=== PATIENT | male | born 1935 | race Caucasian/White ===

== ENCOUNTER 2019-01-12 15:43 | Emergency (ER) | payer MEDICARE, OTHER, SELFPAY ==
--- NOTE | 2019-01-12 15:52 | W.ED.GENAD ---
Discharge Plan Disposition Patient Disposition: HOME Condition: Improving Discharge Details Chief Complaint: Laceration Clinical Impression: Laceration of thumb Primary Care Provider: Catrina Steve ED Provider: Sara Baeza Home Meds and New Rx's Prescriptions: Continued multivitamin [Daily Vitamin] 1 EACH tablet 1 tab PO DAILY RF: 0 glucosam-chond ro-nekopv-ys ac 1 EACH capsule 2 cap PO DAILY RF: 0 Prilosec OTC 20 MG tablet,delayed release (DR/EC) 20 mg PO DAILY RF: 0 ibuprofen 200 MG tablet 400 mg PO PRN PRNRF: 0 acetaminophen [Acetaminophen Extra Strength] 500 MG tablet 500 mg PO Q6H PRN PRNQty: 60 RF: 3 Discharge Instructions Instructions: Laceration (ED) Additional Instructions: Keep wound clean, dry, covered. Please keep current dressing on for the next 24 hours. After that, you may apply Band-Aid over wound. You may wash with running water and soap but please do not soak or submerge as this may increase risk of infection. Please monitor for signs of infection with redness, warmth, drainage, increased pain, fever/chills. If these arise, please seek care urgently once again. Otherwise, please return in 10 days for suture removal. Referrals: Catrina Steve MD, [place] [Primary Care Provider] - Discharge Data Discharge Date/Time-TO BE ENTERED AT DEPARTURE: 01/12/19 17:10 Medical Decision Making Patient is a 83 year old RHD male presenting today with c/c of laceration to palmar aspect of left thumb. 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 Denies altered sensation, no other injury. Ligamentous and sensation intact on exam. Patient has a 2cm irregular laceration into subcutaneous tissue. Discussed closure techniques, discussed risks/benefits of suture closure with expected procedureal steps, he voices understanding and wishes to proceed. Unknwon tetanus. Please see procedure note. Wound was explored to base in a bloodless field no foreign body or debris noted. Wound was copiously irrigated with chlorhexidine and saline. Patient I discussed wound care in depth. We discussed when she should seek care urgently once again, in particular discussed signs of infection. I advised to keep current dressing on until tomorrow. At that time will keep covered with bandage. He will return in 10 days for suture removal. We discussed activities to avoid. All other questions or concerns were addressed and he is in agreement this plan HPI General Mode of arrival: ambulatory. Date/Time Provider Initiated Documentation: 01/12/19 15:52. Limitations to Documentation: no limitations. Information obtained by: patient and RN notes reviewed. History of Present Illness 83 year old M presents to the emergency department with the chief complaint of Laceration left thumb, described as mild, Quality is described as aching, and is localized to the left and upper extremity. Patient reports no radiation. Patient started experiencing this hour(s) (1) and it has been constant. No exacerbating factors reported . Patient notes no other symptoms.. Patient did receive the following treatments prior to arrival, none Related Data Home Medications Medication Instructions Recorded Confirmed glucosam-chond nc-vymdvz-fo ac 2 cap PO DAILY 02/09/13 01/12/19 multivitamin [Daily Vitamin] 1 tab PO DAILY 02/09/13 01/12/19 Prilosec OTC 20 mg PO DAILY 04/06/14 01/12/19 acetaminophen [Acetaminophen Extra 500 mg PO Q6H PRN PRN #60 tablet 07/16/17 01/12/19 Strength] ibuprofen 400 mg PO PRN PRN 07/16/17 01/12/19 Previous Rx's Medication Instructions Recorded acetaminophen [Acetaminophen Extra 500 mg PO Q6H PRN PRN #60 tablet 07/16/17 Strength] Allergies Allergy/AdvReac Type Severity Reaction Status Date / Time No Known Allergies Allergy Unverified 07/29/18 11:15 Review of Systems Constitutional Reports as per HPI, Denies chills and Denies fever(s) Musculoskeletal Reports as per HPI Integumentary/Breasts Reports as per HPI Neurologic Reports as per HPI, Denies sensory deficit and Denies paresthesias [facility] Medical History 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 Maternal Grandfather Cancer Paternal Grandfather Cancer of spinal column Grandmother Cervical cancer Social History Smoking/Tobacco Use Status: Former Tobacco Use Quit Date: 09/02/63 Second Hand Exposure: Yes Alcohol Intake: current Alcohol Intake frequency: 0-2 drinks per day Alcohol type: wine and hard liquor Drug use: Never Substance use type: does not use Pets and animals: Yes Pets and animals: dog(s) Duration: 30-45 minutes/day Frequency: 3-4 times per week Ivy/Lutheran: Religion Special ivy needs: No Do you feel safe at home: Yes Do you feel safe in your relationship?: Yes Exam Const General: cooperative, healthy appearing, comfortable, no acute distress and well developed Nutritional Appearance: average body habitus and well nourished Orientation: alert and awake Resp Effort & Inspection: normal respiratory effort, able to speak in complete sentences and no respiratory distress Cardio Rate: regular rate Rhythm: regular rhythm Skin Trauma: laceration (Patient is irregularly-shaped 2.5 cm laceration to the palmar aspect L thum) Neuro General: alert and awake Cognition: normal cognition Speech: speech normal Gait: normal gait Sensory Exam: no sensory deficits noted and normal double simultaneous stimulation Extrem General: full ROM, normal capillary refill and no joint enlargement Right upper extremity: full ROM, normal capillary refill, no joint enlargement and hand (laceration as above) Details: normal capillary refill, neuromotor exam normal, neurosensory exam normal and tendon exam normal Psych Appearance: grossly normal and well kempt Mental Status: mental status grossly normal Speech and Movement: speech and movement normal Procedures Laceration Laceration 1: Site: hand Side (If applicable): left Size (cm): 2.5 Description: irregular Depth: simple, single layer Local Anesthetic: Lidocaine 1% Amount of anesthesia used (mL): 3 Pre-repair: wound explored, irrigated extensively and deep structures intact Skin layer closed with: nylon and other Size (cm): 5-0 Number of sutures: 6 Technique: simple, interrupted
[2019-01-12 15:54] VITALS: BP 174/66; PULSE 48; RESP 16; TEMP 36.3; O2SAT 100
--- NOTE | 2019-01-12 15:57 | ED.GENADUL_ITS ---
Discharge Plan Disposition Patient Disposition: HOME Condition: Improving Discharge Details Chief Complaint: Laceration Clinical Impression: Laceration of thumb Primary Care Provider: Catrina Steve ED Provider: Sara Baeza Home Meds and New Rx's Prescriptions: Continued multivitamin [Daily Vitamin] 1 EACH tablet 1 tab PO DAILY RF: 0 glucosam-chond tm-sclvee-lx ac 1 EACH capsule 2 cap PO DAILY RF: 0 Prilosec OTC 20 MG tablet,delayed release (DR/EC) 20 mg PO DAILY RF: 0 ibuprofen 200 MG tablet 400 mg PO PRN PRNRF: 0 acetaminophen [Acetaminophen Extra Strength] 500 MG tablet 500 mg PO Q6H PRN PRNQty: 60 RF: 3 Discharge Instructions Instructions: Laceration (ED) Additional Instructions: Keep wound clean, dry, covered. Please keep current dressing on for the next 24 hours. After that, you may apply Band-Aid over wound. You may wash with running water and soap but please do not soak or submerge as this may increase risk of infection. Please monitor for signs of infection with redness, warmth, drainage, increased pain, fever/chills. If these arise, please seek care urgently once again. Otherwise, please return in 10 days for suture removal. Referrals: Catrina Steve MD, [place] [Primary Care Provider] - Discharge Data Discharge Date/Time-TO BE ENTERED AT DEPARTURE: 01/12/19 17:10 Medical Decision Making Patient is a 83 year old RHD male presenting today with c/c of laceration to palmar aspect of left thumb. 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 Denies altered sensation, no other injury. Ligamentous and sensation intact on exam. Patient has a 2cm irregular laceration into subcutaneous tissue. Discussed closure techniques, discussed risks/benefits of suture closure with expected procedureal steps, he voices understanding and wishes to proceed. Unknwon tetanus. Please see procedure note. Wound was explored to base in a bloodless field no foreign body or debris noted. Wound was copiously irrigated with chlorhexidine and saline. Patient I discussed wound care in depth. We discussed when she should seek care urgently once again, in particular discussed signs of infection. I advised to keep current dressing on until tomorrow. At that time will keep covered with bandage. He will return in 10 days for suture removal. We discussed activities to avoid. All other questions or concerns were addressed and he is in agreement this plan HPI General Mode of arrival: ambulatory . Date/Time Provider Initiated Documentation: 01/12/19 15:52 . Limitations to Documentation: no limitations . Information obtained by: patient and RN notes reviewed . History of Present Illness 83 year old M presents to the emergency department with the chief complaint of Laceration left thumb, described as mild, Quality is described as aching, and is localized to the left and upper extremity. Patient reports no radiation. Patient started experiencing this hour(s) (1) and it has been constant. No exacerbating factors reported . Patient notes no other symptoms.. Patient did receive the following treatments prior to arrival, none Related Data Home Medications Medication Instructions Recorded Confirmed glucosam-chond wh-unhyfk-gp ac 2 cap PO DAILY 02/09/13 01/12/19 multivitamin [Daily Vitamin] 1 tab PO DAILY 02/09/13 01/12/19 Prilosec OTC 20 mg PO DAILY 04/06/14 01/12/19 acetaminophen [Acetaminophen Extra 500 mg PO Q6H PRN PRN #60 tablet 07/16/17 01/12/19 Strength] ibuprofen 400 mg PO PRN PRN 07/16/17 01/12/19 Previous Rx's Medication Instructions Recorded acetaminophen [Acetaminophen Extra 500 mg PO Q6H PRN PRN #60 tablet 07/16/17 Strength] Allergies Allergy/AdvReac Type Severity Reaction Status Date / Time No Known Allergies Allergy Unverified 07/29/18 11:15 Review of Systems Constitutional Reports as per HPI, Denies chills and Denies fever(s) Musculoskeletal Reports as per HPI Integumentary/Breasts Reports as per HPI Neurologic Reports as per HPI, Denies sensory deficit and Denies paresthesias [facility] Medical History 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 Maternal Grandfather Cancer Paternal Grandfather Cancer of spinal column Grandmother Cervical cancer Social History Smoking/Tobacco Use Status: Former Tobacco Use Quit Date: 09/02/63 Second Hand Exposure: Yes Alcohol Intake: current Alcohol Intake frequency: 0-2 drinks per day Alcohol type: wine and hard liquor Drug use: Never Substance use type: does not use Pets and animals: Yes Pets and animals: dog(s) Duration: 30-45 minutes/day Frequency: 3-4 times per week Ivy/Scientologist: Baptist Special ivy needs: No Do you feel safe at home: Yes Do you feel safe in your relationship?: Yes Exam Const General: cooperative, healthy appearing, comfortable, no acute distress and well developed Nutritional Appearance: average body habitus and well nourished Orientation: alert and awake Resp Effort & Inspection: normal respiratory effort, able to speak in complete sentences and no respiratory distress Cardio Rate: regular rate Rhythm: regular rhythm Skin Trauma: laceration (Patient is irregularly-shaped 2.5 cm laceration to the palmar aspect L thum) Neuro General: alert and awake Cognition: normal cognition Speech: speech normal Gait: normal gait Sensory Exam: no sensory deficits noted and normal double simultaneous stimulation Extrem General: full ROM, normal capillary refill and no joint enlargement Right upper extremity: full ROM, normal capillary refill, no joint enlargement and hand (laceration as above) Details: normal capillary refill, neuromotor exam normal, neurosensory exam normal and tendon exam normal Psych Appearance: grossly normal and well kempt Mental Status: mental status grossly normal Speech and Movement: speech and movement normal Procedures Laceration Laceration 1: Site: hand Side (If applicable): left Size (cm): 2.5 Description: irregular Depth: simple, single layer Local Anesthetic: Lidocaine 1% Amount of anesthesia used (mL): 3 Pre-repair: wound explored, irrigated extensively and deep structures intact Skin layer closed with: nylon and other Size (cm): 5-0 Number of sutures: 6 Technique: simple, interrupted
[2019-01-12 17:09] VITALS: BP 174/66; PULSE 48; RESP 16; TEMP 36.3; O2SAT 100
== END 2019-01-12 17:10 | disposition home or self-care (01) ==
PROVIDERS: Emergency Provider Physician Assistant; PCP Family Medicine
DX: S61.122A Laceration with foreign body of left thumb with damage to nail, initial encounter (principal); W45.8XXA Other foreign body or object entering through skin, initial encounter
CPT/HCPCS: 12001

== ENCOUNTER 2019-01-22 15:05 | Emergency (ER) | payer MEDICARE, OTHER, SELFPAY ==
[2019-01-22 15:13] VITALS: BP 160/84; PULSE 54; RESP 16; TEMP 37; O2SAT 98
--- NOTE | 2019-01-22 15:21 | ED.GENADUL_ITS ---
Discharge Plan Disposition Patient Disposition: HOME Condition: Stable Discharge Details Chief Complaint: SutureRem Clinical Impression: Visit for suture removal Primary Care Provider: Catrina Steve ED Provider: Ananda Cheema Home Meds and New Rx's Prescriptions: No Action multivitamin [Daily Vitamin] 1 EACH tablet 1 tab PO DAILY RF: 0 glucosam-chond fx-krmgkk-vk ac 1 EACH capsule 2 cap PO DAILY RF: 0 Prilosec OTC 20 MG tablet,delayed release (DR/EC) 20 mg PO DAILY RF: 0 ibuprofen 200 MG tablet 400 mg PO PRN PRNRF: 0 acetaminophen [Acetaminophen Extra Strength] 500 MG tablet 500 mg PO Q6H PRN PRNQty: 60 RF: 3 Discharge Instructions Instructions: Stitches Removal (ED) Medical Decision Making 83 yo male comes in for suture removal. The stitches placed on left thumb are well healed without evidence of infection and has intact sensation and full rom. Will have nursing remove stitches, return precautions given Differential Diagnosis suture removal Medical Records Medical records reviewed: Yes I reviewed the patient's medical records. HPI General Mode of arrival: ambulatory . Date/Time Provider Initiated Documentation: 01/22/19 15:19 . Limitations to Documentation: no limitations . Information obtained by: patient . History of Present Illness 83 year old M presents to the emergency department with the chief complaint of suture removal, described as mild, and is localized to the left and upper extremity. Patient started experiencing this week(s) (1) and it has been constant. No relieving factors improve symptom(s), No exacerbating factors reported . Patient notes no other symptoms.. Patient did receive the following treatments prior to arrival, none Related Data Home Medications Medication Instructions Recorded Confirmed glucosam-chond qw-fqibuv-cy ac 2 cap PO DAILY 02/09/13 01/12/19 multivitamin [Daily Vitamin] 1 tab PO DAILY 02/09/13 01/12/19 Prilosec OTC 20 mg PO DAILY 04/06/14 01/12/19 acetaminophen [Acetaminophen Extra 500 mg PO Q6H PRN PRN #60 tablet 07/16/17 01/12/19 Strength] ibuprofen 400 mg PO PRN PRN 07/16/17 01/12/19 Previous Rx's Medication Instructions Recorded acetaminophen [Acetaminophen Extra 500 mg PO Q6H PRN PRN #60 tablet 07/16/17 Strength] Allergies Allergy/AdvReac Type Severity Reaction Status Date / Time No Known Allergies Allergy Unverified 07/29/18 11:15 General Stated Complaint: SutureRem GINA: 5 Review of Systems Review of Systems All systems reviewed & are unremarkable except as noted in HPI and below Constitutional Denies chills and Denies fever(s) Cardiovascular Denies dyspnea Respiratory Denies cough and Denies dyspnea Gastrointestinal Denies vomiting Musculoskeletal Denies joint swelling Integumentary/Breasts Denies rash Hematologic/Lymphatic Denies easy bleeding PFSH Surgical History Colonoscopy - MAC (09/12/12) Family History Mother Uterine cancer Father Stomach cancer Sister No problems noted. Maternal Grandfather Cancer Paternal Grandfather Cancer of spinal column Grandmother Cervical cancer Social History Smoking/Tobacco Use Status: Former Tobacco Use Quit Date: 09/02/63 Second Hand Exposure: Yes Alcohol Intake: current Alcohol Intake frequency: 0-2 drinks per day Alcohol type: wine and hard liquor Drug use: Never Substance use type: does not use Pets and animals: Yes Pets and animals: dog(s) Duration: 30-45 minutes/day Frequency: 3-4 times per week Ivy/Taoism: Pentecostal Special ivy needs: No Do you feel safe at home: Yes Do you feel safe in your relationship?: Yes Exam Const General: no acute distress Orientation: alert HENMT Head: normal to inspection Ears: external ears normal General nose exam: external nose normal Mouth: moist mucous membranes Eyes General: appearance normal, both eyes and all related structures Neck Neck: normal visual inspection Resp Effort & Inspection: normal respiratory effort and able to speak in complete sentences Cardio Rate: regular rate Skin General skin exam: no rashes or lesions noted Neuro General: alert and oriented x3 Extrem General: full ROM and normal capillary refill Psych Mental Status: mental status grossly normal Course Vital Signs Temperature 37.0 C 01/22/19 15:13 Pulse 54 L 01/22/19 15:13 Respiratory Rate 16 01/22/19 15:13 Blood Pressure 160/84 H 01/22/19 15:13 Pulse Oximetry 98 01/22/19 15:13 Temperature 37.0 C 01/22/19 15:13 Temperature Source Skin 01/22/19 15:13 Pulse 54 L 01/22/19 15:13 Respiratory Rate 16 01/22/19 15:13 Respiratory Effort 01/22/19 15:15 Blood Pressure 160/84 H 01/22/19 15:13 Blood Pressure Position Supine 01/22/19 15:13 Pulse Oximetry 98 01/22/19 15:13 Oxygen Delivery Method Room Air 01/22/19 15:13 Oxygen Flow Rate 0 01/22/19 15:13 Pain Level 0 01/22/19 15:13
--- NOTE | 2019-01-22 15:43 | NUR.NOTE ---
6 sutures removed by SAJI Carter , area dressed with bandaideNursing Note:
== END 2019-01-22 15:43 | disposition home or self-care (01) ==
PROVIDERS: Emergency Provider Emergency Medicine; PCP Family Medicine
DX: S61.012D Laceration without foreign body of left thumb without damage to nail, subsequent encounter (principal); X58.XXXD Exposure to other specified factors, subsequent encounter; Z48.02 Encounter for removal of sutures

== ENCOUNTER 2020-08-10 03:39 | Outpatient (CLI) | payer MEDICARE, OTHER, SELFPAY ==
[2020-08-10 12:20] LABS: HCT 44.1 % (40.0-50.0); HGB 14.8 g/dL (13.5-17.5); MCH 30.7 pg (27.0-33.0); MCHC 33.6 % (32.0-36.0); MCV 91.5 fL (80-95); MPV 9.5 fL (8.0-11.0); Platelet Count 274 10^3/uL (130-400); RBC 4.82 10^6/uL (4.36-5.78)
[2020-08-10 12:57] LABS: ALT 35 U/L (16-63); AST 30 U/L (15-37); Albumin 4.1 g/dL (3.4-5.0); Alkaline Phosphatase 48 U/L (46-116); BUN 19 mg/dL (7-18); Bilirubin, Total 0.5 mg/dL (0.2-1.0); Calcium 8.7 mg/dL (8.5-10.1); Calculated LDL 116 mg/dL (<100); Chloride 103 mmol/L (98-107); Cholesterol 196 mg/dL (<200); Glucose 81 mg/dL (74-106); HDL Cholesterol 67 mg/dL (40-60); Magnesium 1.9 mg/dL (1.8-2.4); Sodium 139 mmol/L (136-145); TSH (W/Ref FT4) 0.74 uIU/mL (0.36-3.74); Triglyceride 65 mg/dL (<150)
[2020-08-10 13:01] LABS: Hemoglobin A1C 5.2 % (<5.7)
== END 2020-08-10 03:59 ==
PROVIDERS: PCP Family Medicine; Visit Provider Family Medicine
DX: I48.91 Unspecified atrial fibrillation (principal); E78.5 Hyperlipidemia, unspecified; E11.9 Type 2 diabetes mellitus without complications; R03.0 Elevated blood-pressure reading, without diagnosis of hypertension; Z01.818 Encounter for other preprocedural examination
CPT/HCPCS: 36415; 80053; 80061; 85027; 83036; 83735; 84443

== ENCOUNTER 2020-12-19 11:01 | Outpatient (CLI) | payer MEDICARE, OTHER, SELFPAY ==
--- NOTE | 2020-12-19 11:00 | RT.EKG_ITS ---
APPROVED REPORT Exam: Resting ECG Patient Location: O HR:66 bpm ECG Measurements Heart Rate 66 AXIS IA [id number] P [id number] QRSd 101 QRS 31 QT 397 T -32 QTc 415 Conclusion Atrial fibrillation...V-rate 63- 75, irreg A-activity
== END 2020-12-19 11:02 | disposition home or self-care (01) ==
LOC: DI.CM 11:02
PROVIDERS: PCP Family Medicine; Visit Provider Family Medicine
DX: I48.91 Unspecified atrial fibrillation (principal)
CPT/HCPCS: 93010

== ENCOUNTER 2021-04-13 13:56 | Outpatient (CLI) | payer MEDICARE, OTHER, SELFPAY ==
--- NOTE | 2021-04-13 13:45 | RT.EKG_ITS ---
APPROVED REPORT Exam: Resting ECG Reason for Exam: Pre-op exam Patient Location: O HR:74 bpm ECG Measurements Heart Rate 74 AXIS IA [id number] P [id number] QRSd 107 QRS 18 QT 401 T -29 QTc 446 Conclusion Atrial fibrillation...V-rate 60- 90, irreg A-activity
== END 2021-04-13 13:57 | disposition home or self-care (01) ==
LOC: DI.CM 13:58
PROVIDERS: PCP Family Medicine; Visit Provider Family Medicine
DX: Z01.818 Encounter for other preprocedural examination (principal)
CPT/HCPCS: 93010

== ENCOUNTER 2021-04-17 06:46 | Day surgery (SDC) | payer MEDICARE, OTHER, SELFPAY ==
--- NOTE | 2021-04-17 06:31 | ANES.PREOP_ITS ---
General Info Date of Service Date Performed: 04/17/21 Height: 5 ft 10 in Weight: 85.729 kg Body Mass Index (BMI): 27.1 Surgical Procedure: Operation Date: 04/17/21 08:40 Proposed Procedures Side Surgeon p Cataract Extraction with IOL Implant Right Will Garcia MD Meds Allergies and Home Medications Allergies Allergy/AdvReac Type Severity Reaction Status Date / Time No Known Allergies Allergy Verified 04/17/21 07:12 Home Medication Medication Instructions Recorded glucosam-chond pl-eipiwg-hj ac 2 cap PO DAILY 02/09/13 omeprazole magnesium [Prilosec OTC] 20 mg PO DAILY 04/06/14 acetaminophen [Acetaminophen Extra 500 mg PO Q6H PRN PRN #60 tab 07/16/17 Strength] ibuprofen 400 mg PO PRN PRN 07/16/17 apixaban 5 mg tablet 5 mg PO BID #180 tab 08/08/20 metoprolol succinate 100 mg 100 mg PO DAILY #90 tab 08/30/20 tablet,extended release 24 hr Current Visit Medications: Current Medications Generic Name Dose Route Start Last Admin Trade Name Freq PRN Reason Stop Dose Admin Acetaminophen 1,000 mg 04/17/21 06:00 Acetaminophen 500 Mg Tab PO Q4H PRN PRN Miscellaneous Medication 0 ml 04/17/21 06:00 Prednisolone 1%, Moxifloxacin 0.5%, Nepafenac 0.1% 5ml Btl OD DIRECTED [facility] Miscellaneous Medication 0 ml 04/17/21 06:00 Tropicam./Phenyleph. (1/2.5%) 5 Ml Btl OD DIRECTED [facility] Tetracaine HCl 0 ml 04/17/21 06:00 Tetracaine 0.5% 4 Ml Btl OD DIRECTED [facility] PFSH Active Problems Active Problems: Problem Status Onset Code Encounter for annual physical exam Z00.00 Elevated blood pressure reading R03.0 Atrial fibrillation I48.91 Herpes zoster B02.9 Rupture of posterior cruciate ligament 06/17/17 S83.529A Hypertriglyceridemia E78.1 Hyperlipidemia 12/02/07 E78.5 Hip pain 02/09/13 M25.559 Hemorrhoids 12/02/07 K64.9 Hearing loss H91.90 Diverticulosis of colon without diverticulitis 02/04/08 K57.30 Actinic keratitis 04/06/14 H16.139 Medical History Medical History Actinic keratitis (04/06/14) Atrial fibrillation Diverticulosis of colon without diverticulitis (02/04/08) [place] lesion Hearing loss Hemorrhoids (12/02/07) Herpes zoster Hip pain (02/09/13) Hyperlipidemia (12/02/07) HX of low HDL's Hypertriglyceridemia Polyp of colon (12/02/07) Rotator cuff syndrome (12/02/07) Tear of medial meniscus of knee (06/17/17) Surgical History Surgical History Colonoscopy - MAC (09/12/12) Rupture of posterior cruciate ligament (06/17/17) Tobacco Smoking/Tobacco Use Status: Former Tobacco Use Tobacco: How many years used: 12 Passive smoking exposure: Yes Second hand exposure: Yes Alcohol Alcohol Intake: current Alcohol intake frequency: 0-2 drinks per day Alcohol type: wine and hard liquor Substance Use Substance use: Never Substance use type: does not use Vital Signs and Lab Results Vital Signs Most Recent Vital Signs in EMR: Temp Pulse Resp BP Pulse Ox 36.2 C L 64 18 126/82 98 04/17/21 07:03 04/17/21 07:03 04/17/21 07:03 04/17/21 07:03 04/17/21 07:03 Lab Results Blood Type / Crossmatch: No Data to Display Complete Blood Count: No Data to Display Complete Metabolic Panel: No Data to Display Liver Function Panel: No Data to Display Coagulation Panel: No Data to Display Cardiac Panel: No Data to Display Arterial Blood Gas: No Data to Display Venous Blood Gas: No Data to Display Pancreas Panel: No Data to Display Thyroid Panel: No Data to Display Infectious Disease: No Data to Display Blood Cultures: No Data to Display Toxicology Panel: No Data to Display Imaging and Studies Imaging and Studies EKG Summary: 04/22: a fib V rate 60-90. Anesthesia Assessment and Plan Anesthesia History Personal History: No History of Anesthesia Complications Family History: No Family History of Anesthesia Complications Exercise Tolerance Exercise Tolerance: Metabolic Equivalents>4 Cardiac & Pulmonary Exam Cardiac Exam: Normal S1/S2 Heart Sounds Pulmonary Exam: Clear Bilateral Breath Sounds Airway Exam Known Difficult Airway: No Mallampati Class: 3 Mouth Opening: Normal (> 3cm) Thyromental Distance: Greater than 3 cm Neck Range of Motion: Limited ROM Neck Circumference: Normal Teeth Condition: Normal Dentition ASA Classification ASA Score: ASA 2 Emergency Case?: No NPO Status NPO Status: NPO Clears >2 hours, Solids >8 hours Anesthesia Plan Resuscitation Status: Full Code Anesthesia Technique: MAC Anesthesia Airway Planned: Natural Airway Monitors Used: Standard Monitors Preoperative Comments:: 85 yo male for cataract removal. PMHx afib (rate controlled, on eliquis/metoprolol), HTN, GERD (well controlled on omeprozole). previous anesthesia with LMA 4.
[2021-04-17 07:03] VITALS: BP 126/82; PULSE 64; RESP 18; TEMP 36.2; O2SAT 98
[2021-04-17] MEDS: Tropicam./Phenyleph. (1/2.5%) 5 ML BTL OD ×3 (07:11→07:21)
[2021-04-17 07:21] VITALS: BMI 27.1
[2021-04-17] MEDS: Tetracaine 0.5% 4 ML BTL OD (08:05)
[2021-04-17] MEDS: Povidone-Iodine Ophth 30 ML BTL (08:05)
[2021-04-17] MEDS: Lidocaine 2% Jelly 6 ML SYR (08:06)
[2021-04-17] MEDS: Balanced Salt Soln.-PLUS 500 ML BAG (08:11)
[2021-04-17] MEDS: Lidocaine 1% Pres-Free 5 ML VIAL (08:12)
[2021-04-17] MEDS: Duovisc Viscoelastic System EACH 1 EACH (08:13)
[2021-04-17 08:32] VITALS: BP 149/94; PULSE 74; RESP 16; TEMP 36.5; O2SAT 99
--- NOTE | 2021-04-17 08:32 | W.PM.DSUDISC ---
Discharge Plan Disposition Patient Disposition: HOME Condition: Good Discharge Details Reason For Visit: Cataract Attending Provider: Will Garcia Primary Care Provider: Catrina Steve Home Meds and New Rx's Prescriptions: No Action Eliquis 5 mg tablet 5 mg PO BID Qty: 180 RF: 5 glucosam-chond [id number]-ev ac 1 EACH capsule 2 cap PO DAILY RF: 0 omeprazole magnesium [Prilosec OTC] 20 MG tablet,delayed release (DR/EC) 20 mg PO DAILY RF: 0 metoprolol succinate 100 mg tablet extended release 24 hr 100 mg PO DAILY Qty: 90 RF: 5 ibuprofen 200 MG tablet 400 mg PO PRN PRNRF: 0 acetaminophen [Acetaminophen Extra Strength] 500 MG tablet 500 mg PO Q6H PRN PRNQty: 60 RF: 3 Discharge Instructions Stand Alone Forms: Post-op Topical Cataract, [facility] ([facility]) Discharge Orders Discharge Orders: Discharge Order (Routine); Ordered 04/17/21 Ordered By: Will Garcia DS: Diagnosis Discharge Diagnosis (1) Cortical cataract of left eye: Status: Resolved (2) Nuclear sclerotic cataract of right eye: Status: Resolved
--- NOTE | 2021-04-17 08:34 | ROE_ITS ---
Date of service: 04/17/21 Time of Service: 08:34 Operative Note Operative Note DATE OF PROCEDURE: 04/17/21 PRE-OP DIAGNOSIS: Nuclear/cortical cataract, right eye POST-OP DIAGNOSIS: same PROCEDURE: Cataract extraction using phacoemulsification with intraocular lens implant, right eye SURGEON: Will Garcia ANESTHESIA TYPE: Local By Surgeon and MAC Refer to Anesthesia Record ESTIMATED BLOOD LOSS: 0 PATHOLOGY: none sent COMPLICATIONS: None Patient was transported to: same day Patient's condition: stable Implants: Dylon & Dylon/IVANA Tecnis [id number] Indications: Progressive visual loss due to cataract, right eye Procedure Description: CATARACT SURGERY OPERATIVE REPORT PREOPERATIVE DIAGNOSIS: 1. Nuclear/cortical cataract, right eye POSTOPERATIVE DIAGNOSIS: Same OPERATION: 1. Cataract extraction using phacoemulsification with posterior chamber intraocular lens implant, right eye. IOL: IOL [employer] Instructor/Model: Dylon & Dylon / IVANA Tecnis [id number] IOL Power: + 22.5 diopters IOL Serial Number: [id number] Optic Diameter: 6.0mm Haptic/Overall Diameter: 13.0mm PHACO INFO: [employer] Vision System with OZil and Active Fluidics Cumulative Dispersed Energy (CDE): 8.97 seconds SURGEON: Will Garcia MD, LU ANESTHESIA: Monitored [facility] (MAC), with local sub-tenon's anesthetic infiltration COMPLICATIONS: None SPECIMENS: None INDICATIONS FOR PROCEDURE: The patient is a 85-year-old gentleman with history of diminished visual acuity in his right eye secondary to the development of nuclear and cortical cataract. He is significantly symptomatic that he desires cataract surgery attempt to improve and maximize his vision. The option of cataract surgery was offered to the patient and he wished to proceed. PROCEDURE: The correct surgical eye was identified and marked as the right eye and the pupil was dilated in the preoperative area using mydriatics and cycloplegics. The dilated pupil size was 6.0 mm. He elected to proceed without oral sedation.. The patient was brought to the operating room where cardiopulmonary monitoring was instituted and surgical time-out was performed, confirming the correct operative eye and IOL power. Topical anesthesia was administered and ophthalmic povidone-iodine 5% was instilled into the conjunctival fornices. Lidocaine gel was applied to the cornea and the susana-ocular area was prepped with Betadine 10% solution and draped in the usual sterile fashion for intraocular surgery, including an aperture drape. A Tegaderm transparent film dressing was cut in half and used to cover the lashes and lid margins. Care was taken to sequester the lashes and lid margins under the Tegaderm dressing. A lid speculum was placed between the lids of the operative eye and the Azalia-Caleb operating microscope was maneuvered into position. Donn scissors were then used to make a conjunctival buttonhole approximately 6mm posterior to the limbus in the inferonasal quadrant. Blunt dissection was carried out to expose bare sclera, and a blunt-tipped sub-tenon?s anesthesia cannula was introduced and passed posteriorly along the globe where non- preserved plain lidocaine was injected into posterior sub-Tenon?s space. A sideport knife was used to make a paracentesis port inferotemporally. Intraocular phenylephrine/lidocaine was injected into the anterior chamber. The anterior chamber was filled with viscoelastic. A 2.4mm keratome knife was used to create a half-thickness groove at the limbus and then to construct a three- plane near-clear corneal tunnel extending 2.0mm into clear cornea superiortemporally. A flap was raised on the anterior capsule and capsulorhexis forceps were used to complete a continuous curvilinear capsulorhexis of 5.0 mm. Balanced salt solution was then used to perform cortical cleaving hydrodissection and nuclear hydrodelineation until the lens could be freely rotated within the capsular bag. The lens nucleus was then disassembled and removed within the capsular bag and iris plane using phacoemulsification. Residual cortical material was removed using the I/A handpiece. The posterior capsule was carefully polished to remove as much residual lens epithelial cells as safely possible. The capsular bag was then inflated and the anterior chamber deepened with viscoelastic. The lens implant described above was inserted into the capsular bag using the IVANA Echo Injector. A Kuglen hook was used to dial the IOL into position. Residual viscoelastic was then removed first from posterior to the IOL, then from the anterior chamber using the I/A handpiece. The lens implant was noted to center nicely within the capsular bag. The incisions were stromally hydrated, and the anterior chamber was reformed using BSS. Then 0.5cc of moxifloxacin 1.0mg/ml were injected into the capsular bag and anterior chamber. The incisions were checked with a Weck spear and found to be secure. Several drops of ophthalmic povidone-iodine 5% were then applied to the eye followed by two drops of Imprimis combination prednisolone/moxifloxacin/nepafenac solution. The drapes were removed and a clear plastic protective eye shield was placed over the eye. The patient was then returned to Same Day Surgery in stable condition.
--- NOTE | 2021-04-17 08:40 | W.ANESPOSTOP ---
Postoperative Evaluation Date, Time and Location Date Performed: 04/17/21 Time Performed: 08:40 Patient Location: Day Surgery Unit Vital Signs Most Recent Imported Vital Signs: Most Recent Vital Signs Temp Pulse Resp BP Pulse Ox 36.5 C 74 16 149/94 H 99 04/17/21 08:32 04/17/21 08:32 04/17/21 08:32 04/17/21 08:32 04/17/21 08:32 Pain Score Most Recent Pain Score: Most Recent Pain Score Pain Level 0 04/17/21 08:32 Assessment Mental Status: Awake (Alert & Oriented to Patient Baseline) Airway and Respiratory Function: Patent airway with normal (patient baseline) respiratory exam Cardiovascular Function: Hemodynamically Stable Hydration Status: Adequately Hydrated Nausea & Vomiting: No Nausea or Vomiting Pain: Pt. Denies Any Pain Peripheral Nerve Block: Patient did not receive a nerve block
== END 2021-04-17 09:10 | disposition home or self-care (01) ==
PROVIDERS: PCP Family Medicine; Visit Provider Ophthalmology
PROC: (CPT 66984; principal; 2021-04-17 08:30)
DX: H25.11 Age-related nuclear cataract, right eye (principal)
CPT/HCPCS: 66984; V2632

== ENCOUNTER 2021-04-28 02:44 | Outpatient (CLI) | payer MEDICARE, OTHER, SELFPAY ==
[2021-04-28 13:01] LABS: Source Nasal/Nares
[2021-04-28 16:58] LABS: COVID-19 PCR Negative (Negative)
== END 2021-04-28 02:45 | disposition home or self-care (01) ==
LOC: LBO 02:44
PROVIDERS: PCP Family Medicine; Visit Provider Ophthalmology
DX: Z20.822 Contact with and (suspected) exposure to COVID-19 (principal); Z01.812 Encounter for preprocedural laboratory examination
CPT/HCPCS: 87635

== ENCOUNTER 2021-05-01 09:34 | Day surgery (SDC) | payer MEDICARE, OTHER, SELFPAY ==
[2021-05-01 09:48] VITALS: BP 133/82; PULSE 62; RESP 16; TEMP 36.4; O2SAT 97
[2021-05-01] MEDS: Tropicam./Phenyleph. (1/2.5%) 5 ML BTL OS ×3 (09:57→10:07)
--- NOTE | 2021-05-01 10:14 | W.ANESPRE ---
General Info Date of Service Date Performed: 05/01/21 Height: 5 ft 10 in Weight: 85.1 kg Body Mass Index (BMI): 26.9 Surgical Procedure: Operation Date: 05/01/21 12:40 Proposed Procedures Side Surgeon p Cataract Extraction with IOL Implant Left Will Garcia MD Meds Allergies and Home Medications Allergies Allergy/AdvReac Type Severity Reaction Status Date / Time No Known Allergies Allergy Verified 05/01/21 09:46 Home Medication Medication Instructions Recorded glucosam-chond zc-jlkyxv-ya ac 2 cap PO DAILY 02/09/13 omeprazole magnesium [Prilosec OTC] 20 mg PO DAILY 04/06/14 acetaminophen [Acetaminophen Extra 500 mg PO Q6H PRN PRN #60 tab 07/16/17 Strength] ibuprofen 400 mg PO PRN PRN 07/16/17 apixaban 5 mg tablet 5 mg PO BID #180 tab 08/08/20 metoprolol succinate 100 mg 100 mg PO DAILY #90 tab 08/30/20 tablet,extended release 24 hr Current Visit Medications: Current Medications Generic Name Dose Route Start Last Admin Trade Name Freq PRN Reason Stop Dose Admin Acetaminophen 1,000 mg 05/01/21 06:00 Acetaminophen 500 Mg Tab PO Q4H PRN PRN Miscellaneous Medication 0 ml 05/01/21 06:00 Prednisolone 1%, Moxifloxacin 0.5%, Nepafenac 0.1% 5ml Btl OS DIRECTED [facility] Miscellaneous Medication 0 ml 05/01/21 06:00 05/01/21 10:07 Tropicam./Phenyleph. (1/2.5%) 5 Ml Btl OS 1 drp DIRECTED [facility] Administration Tetracaine HCl 0 ml 05/01/21 06:00 Tetracaine 0.5% 4 Ml Btl OS DIRECTED [facility] PFSH Active Problems Active Problems: Problem Status Onset Code Encounter for annual physical exam Z00.00 Elevated blood pressure reading R03.0 Atrial fibrillation I48.91 Nuclear sclerotic cataract of right eye H25.11 Cortical cataract of left eye H26.9 Nuclear sclerotic cataract of left eye H25.12 Herpes zoster B02.9 Rupture of posterior cruciate ligament 06/17/17 S83.529A Hypertriglyceridemia E78.1 Hyperlipidemia 12/02/07 E78.5 Hip pain 02/09/13 M25.559 Hemorrhoids 12/02/07 K64.9 Hearing loss H91.90 Diverticulosis of colon without diverticulitis 02/04/08 K57.30 Actinic keratitis 04/06/14 H16.139 Medical History Medical History (Updated 05/01/21 @ 09:45 by Bertram Sorensen) Actinic keratitis (04/06/14) Atrial fibrillation Diverticulosis of colon without diverticulitis (02/04/08) Earlobe lesion Hearing loss Hemorrhoids (12/02/07) Herpes zoster Hip pain (02/09/13) Hyperlipidemia (12/02/07) HX of low HDL's Hypertriglyceridemia Hypotension Polyp of colon (12/02/07) Rotator cuff syndrome (12/02/07) Tear of medial meniscus of knee (06/17/17) Surgical History Surgical History Colonoscopy - MAC (09/12/12) Hx of tonsillectomy Rupture of posterior cruciate ligament (06/17/17) Tobacco Smoking/Tobacco Use Status: Former Tobacco Use Tobacco: How many years used: 12 Passive smoking exposure: Yes Second hand exposure: Yes Alcohol Alcohol Intake: current Alcohol intake frequency: 0-2 drinks per day Alcohol type: wine and hard liquor Substance Use Substance use: Never Substance use type: does not use Vital Signs and Lab Results Vital Signs Most Recent Vital Signs in EMR: Most Recent Vital Signs Temp Pulse Resp BP Pulse Ox 36.4 C L 62 16 133/82 97 05/01/21 09:48 05/01/21 09:48 05/01/21 09:48 05/01/21 09:48 05/01/21 09:48 Lab Results Blood Type / Crossmatch: No Data to Display Complete Blood Count: No Data to Display Complete Metabolic Panel: No Data to Display Liver Function Panel: No Data to Display Coagulation Panel: No Data to Display Cardiac Panel: No Data to Display Arterial Blood Gas: No Data to Display Venous Blood Gas: No Data to Display Pancreas Panel: No Data to Display Thyroid Panel: No Data to Display Infectious Disease: Coronavirus (COVID-19)(PCR) Negative (Negative) 04/28/21 11:08 04/28/21 Coronavirus 2019 Source Nasal/Nares 04/28/21 11:08 04/28/21 Blood Cultures: No Data to Display Toxicology Panel: No Data to Display Imaging and Studies Imaging and Studies EKG Summary: 04/22: a fib V rate 60-90. Anesthesia Assessment and Plan Anesthesia History Personal History: No History of Anesthesia Complications Family History: No Family History of Anesthesia Complications Exercise Tolerance Exercise Tolerance: Metabolic Equivalents>4 Cardiac & Pulmonary Exam Cardiac Exam: Normal S1/S2 Heart Sounds Pulmonary Exam: Clear Bilateral Breath Sounds Airway Exam Known Difficult Airway: No Mallampati Class: 3 Mouth Opening: Normal (> 3cm) Thyromental Distance: Greater than 3 cm Neck Range of Motion: Limited ROM Neck Circumference: Normal Teeth Condition: Normal Dentition ASA Classification ASA Score: ASA 2 Emergency Case?: No NPO Status NPO Status: NPO Clears >2 hours, Solids >8 hours Anesthesia Plan Resuscitation Status: Full Code Anesthesia Technique: MAC Anesthesia Airway Planned: Natural Airway Monitors Used: Standard Monitors Preoperative Comments:: 85 yo male for cataract removal. PMHx afib (rate controlled, on eliquis/metoprolol), HTN, GERD (well controlled on omeprozole). previous anesthesia with LMA 4.
[2021-05-01 10:30] VITALS: BMI 26.9
[2021-05-01] MEDS: Tetracaine 0.5% 4 ML BTL OS (11:27)
[2021-05-01] MEDS: Balanced Salt Soln.-PLUS 500 ML BAG (11:28)
[2021-05-01] MEDS: Duovisc Viscoelastic System EACH 1 EACH (11:28)
[2021-05-01] MEDS: Lidocaine 1% Pres-Free 5 ML VIAL (11:29)
[2021-05-01] MEDS: Lidocaine 2% Jelly 6 ML SYR (11:29)
[2021-05-01] MEDS: Povidone-Iodine Ophth 30 ML BTL (11:31)
--- NOTE | 2021-05-01 11:43 | W.PM.DSUDISC ---
Discharge Plan Disposition Patient Disposition: HOME Condition: Good Discharge Details Attending Provider: Will Garcia Primary Care Provider: Catrina Steve Home Meds and New Rx's Prescriptions: No Action Eliquis 5 mg tablet 5 mg PO BID Qty: 180 RF: 5 glucosam-chond wb-ftaaco-uk ac 1 EACH capsule 2 cap PO DAILY RF: 0 omeprazole magnesium [Prilosec OTC] 20 MG tablet,delayed release (DR/EC) 20 mg PO DAILY RF: 0 metoprolol succinate 100 mg tablet extended release 24 hr 100 mg PO DAILY Qty: 90 RF: 5 ibuprofen 200 MG tablet 400 mg PO PRN PRNRF: 0 acetaminophen [Acetaminophen Extra Strength] 500 MG tablet 500 mg PO Q6H PRN PRNQty: 60 RF: 3 Discharge Instructions Stand Alone Forms: Post-op Topical Cataract, [facility] ([facility]) Discharge Orders Discharge Orders: Discharge Order (Routine); Ordered 05/01/21 Ordered By: Will Garcia DS: Diagnosis Discharge Diagnosis (1) Cortical cataract of left eye: Status: Resolved (2) Nuclear sclerotic cataract of left eye: Status: Resolved
[2021-05-01 11:45] VITALS: BP 146/104; PULSE 82; RESP 18; TEMP 36; O2SAT 99
--- NOTE | 2021-05-01 11:45 | ROE_ITS ---
Date of service: 05/01/21 Time of Service: 11:46 Operative Note Operative Note POST-OP DIAGNOSIS: same PROCEDURE: Cataract extraction using phacoemulsification with intraocular lens implant, left eye SURGEON: Wlil Garcia ANESTHESIA TYPE: Local By Surgeon and MAC Refer to Anesthesia Record PATHOLOGY: none sent COMPLICATIONS: None Patient was transported to: same day Patient's condition: stable Implants: Dylon and Dylon / [employer] Tecnis [id number] Indications: Progressive decreased vision due to cataract, left eye, with poor red reflex Procedure Description: CATARACT SURGERY OPERATIVE REPORT PREOPERATIVE DIAGNOSIS: 1. Nuclear/cortical cataract, left eye POSTOPERATIVE DIAGNOSIS: Same OPERATION: 1. Cataract extraction using phacoemulsification with posterior chamber intraocular lens implant, left eye. IOL: IOL [employer] Converter/Model: Dylon & Dylon / IVANA Tecnis [id number] IOL Power: + 22.5 diopters IOL Serial Number: [id number] Optic Diameter: 6.0 mm Haptic/Overall Diameter: 13.0 mm PHACO INFO: [employer] Vision System with OZil and Active Fluidics Cumulative Dispersed Energy (CDE): 9.27 seconds SURGEON: Will Garcia MD, LU ANESTHESIA: Monitored [facility] (MAC), with local sub-tenon's anesthetic infiltration COMPLICATIONS: None SPECIMENS: None INDICATIONS FOR PROCEDURE: The patient is an 85-year-old gentleman with history of diminished visual acuity in both eyes secondary to the development of bilateral nuclear and cortical cataract. He has already undergone cataract surgery in the right eye and is doing well postoperatively. He now presents for cataract surgery in the left eye. PROCEDURE: The correct surgical eye was identified and marked as the left eye and the pupil was dilated in the preoperative area using mydriatics and cycloplegics. The dilated pupil size was 6.5 mm. He elected to proceed without oral sedation. The patient was brought to the operating room where cardiopulmonary monitoring was instituted and surgical time-out was performed, confirming the correct operative eye and IOL power. Topical anesthesia was administered and ophthalmic povidone-iodine 5% was instilled into the conjunctival fornices. Lidocaine gel was applied to the cornea and the susana-ocular area was prepped with Betadine 10% solution and draped in the usual sterile fashion for intraocular surgery, including an aperture drape. A Tegaderm transparent film dressing was cut in half and used t o cover the lashes and lid margins. Care was taken to sequester the lashes and lid margins under the Tegaderm dressing. A lid speculum was placed between the lids of the operative eye and the Azalia-Caleb operating microscope was maneuvered into position. Donn scissors were then used to make a conjunctival buttonhole approximately 6mm posterior to the limbus in the inferonasal quadrant. Blunt dissection was carried out to expose bare sclera, and a blunt-tipped sub-tenon?s anesthesia cannula was introduced and passed posteriorly along the globe where non- preserved plain lidocaine was injected into posterior sub-Tenon?s space. A sideport knife was used to make a paracentesis port superiorly/superiortemporally. Intraocular phenylephrine/lidocaine was injected int the anterior chamber.. The anterior chamber was filled with viscoelastic. A 2.4mm keratome knife was used to create a half-thickness groove at the limbus and then to construct a three-plane near-clear corneal tunnel extending 2.0mm into clear cornea at the 3:00 position. A flap was raised on the anterior capsule and capsulorhexis forceps were used to complete a continuous curvilinear capsulorhexis of 5.0 mm. Balanced salt solution was then used to perform cortical cleaving hydrodissection and nuclear hydrodelineation until the lens could be freely rotated within the capsular bag. The lens nucleus was then disassembled and removed within the capsular bag and iris plane using phacoemulsification. Residual cortical material was removed using the 45-degree angled silicone I/A tip with 0.3mm port. The posterior capsule was carefully polished to remove as much residual lens epithelial cells as safely possible. The capsular bag was then inflated and the anterior chamber deepened with viscoelastic. The lens i mplant described above was inserted into the capsular bag using the IVANA [place] Injector. A Kuglen hook was used to dial the IOL into position. Residual viscoelastic was then removed first from posterior to the IOL, then from the anterior chamber using the I/A handpiece. The lens implant was noted to center nicely within the capsular bag. The incisions were stromally hydrated, and the anterior chamber was reformed using BSS. Then 0.5cc of moxifloxacin 1.0mg/ml were injected into the capsular bag and anterior chamber. The incisions were checked with a Weck spear and found to be secure. Several drops of ophthalmic povidone-iodine 5% were then applied to the eye followed by two drops of Imprimis combination prednisolone/moxifloxacin/nepafenac solution. The drapes were removed and a clear plastic protective eye shield was placed over the eye. The patient was then returned to Same Day Surgery in stable condition.
--- NOTE | 2021-05-01 12:23 | W.ANESPOSTOP ---
Postoperative Evaluation Date, Time and Location Date Performed: 05/01/21 Time Performed: 11:46 Patient Location: Day Surgery Unit Vital Signs Most Recent Imported Vital Signs: Most Recent Vital Signs Temp Pulse Resp BP Pulse Ox 36 C L 82 18 146/104 H 99 05/01/21 11:45 05/01/21 11:45 05/01/21 11:45 05/01/21 11:45 05/01/21 11:45 Pain Score Most Recent Pain Score: Most Recent Pain Score Pain Level 0 05/01/21 11:45 Assessment Mental Status: Awake (Alert & Oriented to Patient Baseline) Airway and Respiratory Function: Patent airway with normal (patient baseline) respiratory exam Cardiovascular Function: Hemodynamically Stable Hydration Status: Adequately Hydrated Nausea & Vomiting: No Nausea or Vomiting Pain: Pt. Denies Any Pain Peripheral Nerve Block: Patient did not receive a nerve block
== END 2021-05-01 12:00 | disposition home or self-care (01) ==
PROVIDERS: PCP Family Medicine; Visit Provider Ophthalmology
PROC: (CPT 66984; principal; 2021-05-01 12:30)
DX: H25.12 Age-related nuclear cataract, left eye (principal); I48.91 Unspecified atrial fibrillation; E78.5 Hyperlipidemia, unspecified
CPT/HCPCS: 66984; V2632

== ENCOUNTER 2021-05-26 10:06 | Emergency (ER) | payer MEDICARE, OTHER, SELFPAY ==
[2021-05-26 10:20] VITALS: BP 143/83; PULSE 76; RESP 18; TEMP 36.6; O2SAT 98
[2021-05-26 10:54] LABS: Abs Immature Grans 0.01 10^3/uL (0.0-0.06); Absolute Basophil Count 0.04 10^3/uL (0.0-0.2); Absolute Eosinophil Count 0.14 10^3/uL (0.0-0.7); Absolute Lymphocyte Count 1.53 10^3/uL (1.2-3.4); Absolute Neutrophil Count 3.72 10^3/uL (1.2-6.7); Basophils % 0.7; Eosinophils % 2.4; HCT 44.2 % (40.0-50.0); HGB 14.5 g/dL (13.5-17.5); Immature Grans % 0.2; Lymphocytes % 26.2; MCHC 32.8 % (32.0-36.0); MCV 94.6 fL (80-95); MPV 9.6 fL (8.0-11.0); Monocytes % 6.8; Neutrophils % 63.7; Nucleated RBC 0 %; Platelet Count 224 10^3/uL (130-400); RBC 4.67 10^6/uL (4.36-5.78); RDW 12.7 % (11.8-14.1); RDW-SD 43.9 fL; WBC 5.84 10^3/uL (4.4-10.8)
--- NOTE | 2021-05-26 10:57 | ED.GENADUL_ITS ---
Discharge Plan Disposition Patient Disposition: HOME Condition: Good Discharge Details Clinical Impression: Epistaxis Primary Care Provider: Catrina Steve ED Provider: Leigh Ann Bernard Home Meds and New Rx's Prescriptions: Continued Eliquis 5 mg tablet 5 mg PO BID Qty: 180 RF: 5 glucosam-chond th-mngqhd-au ac 1 EACH capsule 2 cap PO DAILY RF: 0 omeprazole magnesium [Prilosec OTC] 20 MG tablet,delayed release (DR/EC) 20 mg PO DAILY RF: 0 metoprolol succinate 100 mg tablet extended release 24 hr 100 mg PO DAILY Qty: 90 RF: 5 ibuprofen 200 MG tablet 400 mg PO PRN PRNRF: 0 acetaminophen [Acetaminophen Extra Strength] 500 MG tablet 500 mg PO Q6H PRN PRNQty: 60 RF: 3 No Action amoxicillin 875 mg tablet 875 mg PO BID 5 Days Qty: 10 RF: 0 Discharge Instructions Instructions: Nosebleed (ED) Additional Instructions: Your CBC looks great You have an appointment to have your packing removed on Saturday at [address] Saleem Should you have recurrent bleeding, you may apply pressure Coat your left nostril Humidifier in the room Talk to your doctor about when to reinitiate Eliquis and return earlier should y ou have new or worsening complaints Referrals: Leigh Ann Bernard PA [Emergency Provider] - Catrina Steve MD, [place] [Primary Care Provider] - Mario Saleem MD [ [facility] STAFF PHYSICIAN] - Discharge Data Discharge Date/Time-TO BE ENTERED AT DEPARTURE: 05/26/21 11:20 Medical Decision Making <CHANEL Calderon - Last Filed: 05/29/21 08:26> Risk and benefit nasal packing, however patient had 4 episodes of recurrent bleeding despite the discontinuation of his Eliquis He is agreeable to placing a Rhino Rocket at this time tolerated the procedure well did report some discomfort He has no active bleeding at time of reassessment blood pressure is stable exam, his platelets are within normal limits CBC is reassuring He will follow up with his scheduled appointment with ENT on Saturday placed on antibiotic prophylactically given low threshold to return should he have new or worsening complaints and discharged home in stable condition with stable vitals Exam that she does have a history of paroxysmal atrial fibrillation, he will discuss with his doctor regarding reinitiating Eliquis Medical Records Medical records reviewed: Yes I reviewed the patient's medical records. Lab Data Lab results reviewed: Yes I reviewed the patient's lab results. <Andres Morrison MD - Last Filed: 06/02/21 19:20> Patient seen, examined, and discussed with CHANEL Bernard. I agree with treatment plan as discussed/documented. HPI <CHANEL Calderon - Last Filed: 05/29/21 08:26> General Mode of arrival: ambulatory . Date/Time Provider Initiated Documentation: 05/26/21 10:34 . Limitations to Documentation: no limitations . Information obtained by: patient . HPI Narrative: This 85-year-old male with history of atrial fibrillation anticoagulated on Eliquis presents with report of current portion of the past several days. He stopped taking his Eliquis on Saturday for which he takes for paroxysmal atrial fibrillation. He states she has had 4 episodes of bleeding Saturday. Patient indicates he did have a bleed from the right naris this morning which he was able to control once he arrived in the emergency room. At the request of the provider he presents to the emergency room this morning. He denies any fever or chills. He denies any weakness or dizziness. He denies any trauma to his face or knee he denies any chest pain or shortness of breath. He denies any blood from additional site. He denies prior history of similar symptoms in the past. Related Data Home Medications Medication Instructions Recorded Confirmed glucosam-chond hq-wxicbm-da ac 2 cap PO DAILY 02/09/13 05/31/21 omeprazole magnesium [Prilosec OTC] 20 mg PO DAILY 04/06/14 05/31/21 acetaminophen [Acetaminophen Extra 500 mg PO Q6H PRN PRN #60 tab 07/16/17 05/31/21 Strength] ibuprofen 400 mg PO PRN PRN 07/16/17 05/31/21 apixaban 5 mg tablet 5 mg PO BID #180 tab 08/08/20 05/31/21 metoprolol succinate 100 mg 100 mg PO DAILY #90 tab 08/30/20 05/31/21 tablet,extended release 24 hr amoxicillin 875 mg tablet 875 mg PO BID 5 Days #10 tab 09/27/21 09/29/21 Previous Rx's Medication Instructions Recorded acetaminophen [Acetaminophen Extra 500 mg PO Q6H PRN PRN #60 tab 07/16/17 Strength] apixaban 5 mg tablet 5 mg PO BID #180 tab 08/08/20 metoprolol succinate 100 mg 100 mg PO DAILY #90 tab 08/30/20 tablet,extended release 24 hr amoxicillin 875 mg tablet 875 mg PO BID 5 Days #10 tab 05/29/21 Allergies Allergy/AdvReac Type Severity Reaction Status Date / Time No Known Allergies Allergy Verified 05/31/21 12:02 General Stated Complaint: Epistaxis GINA: 4 Review of Systems <CHANEL Calderon - Last Filed: 05/29/21 08:26> All systems reviewed & are unremarkable except as noted in HPI and below PFSH <CHANEL Calderon - Last Filed: 05/29/21 08:26> Medical History 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 Stomach cancer Sister No problems noted. Maternal Grandfather , age 70 Cancer Paternal Grandfather , age 46 Cancer of spinal column Paternal Grandmother , age 61 Cervical cancer Maternal Grandmother , age 91 No problems noted. Son No problems noted. Daughter No problems noted. Social History Smoking/Tobacco Use Status: Former Tobacco Use tobacco type: cigarettes Quit Date: 09/02/1963 Tobacco: How many years used: 12 Second Hand Exposure: Yes Smoking risk assessment performed?: Yes Alcohol Intake: current Alcohol Intake frequency: 0-2 drinks per day Alcohol type: wine and hard liquor Drug use: Never Substance use type: does not use Caregiver/Support person: No Household members: spouse Housing: house Communication Needs: Hard of Hearing and Corrective Lenses Do you need help understanding health information?: Never Pets and animals: Yes Pets and animals: dog(s) Sexually active: Yes Do you think of yourself as: straight/heterosexual Current gender identity: male What is your relationship status?: How often do you talk on the phone with friends or family?: decline to answer How often do you get together with friends or relatives?: decline to answer How often do you attend sabianist or faith services?: decline to answer Do you belong to any clubs or organized social groups?: yes Panel score (0-1 are the most socially isolated patients): 2 What type of physical activity do you participate in: other Details: rowing, weights, machines Duration: 15-30 minutes/day Frequency: 3-4 times per week Ivy/Mormon: Adventism Special ivy needs: No Seatbelt use: always Helmet use: Yes Helmet use: sometimes Drive intox or ride w/intox tow driver: No Do you feel safe at home: Yes Do you feel safe in your relationship?: Yes Victim of physical abuse: No Victim of emotional abuse: No Victim of sexual abuse: No Would you like helpful sources: No Exam <CHANEL Calderon - Last Filed: 05/29/21 08:26> Const General: cooperative, comfortable and no acute distress [facility] Head: normal to inspection General nose exam: external nose normal, nares normal and no epistaxis Other: No visible evidence of bleeding noted on anterior exam, no evidence of injury No blood noted to oropharynx Eyes Pupils: PERRL Resp Effort & Inspection: normal respiratory effort Cardio Rate: regular rate Skin Other: No pallor Neuro General: patient alert and patient oriented x3 Course <CHANEL Calderon - Last Filed: 05/29/21 08:26> Vital Signs Vital signs: Vital Signs Temperature 36.6 C 05/26/21 10:20 Pulse 76 05/26/21 10:20 Respiratory Rate 18 05/26/21 10:20 Blood Pressure 143/83 H 05/26/21 10:20 Pulse Oximetry 98 05/26/21 10:20 Temperature 36.6 C 05/26/21 10:20 Temperature Source Skin 05/26/21 10:20 Pulse 76 05/26/21 10:20 Respiratory Rate 18 05/26/21 10:20 Blood Pressure 143/83 H 05/26/21 10:20 Blood Pressure Position Sitting 05/26/21 10:20 Pulse Oximetry 98 05/26/21 10:20 Oxygen Delivery Method Room Air 05/26/21 10:20 Oxygen Flow Rate 0 05/26/21 10:20 Pain Level 0 05/26/21 10:20 Lab/Test Results Lab/Test Results: Laboratory Tests Range/Units 05/26/21 10:48 WBC (4.4-10.8) 10^3/uL 5.84 RBC (4.36-5.78) 10^6/uL 4.67 Hgb (13.5-17.5) g/dL 14.5 Hct (40.0-50.0) % 44.2 MCV (80-95) fL 94.6 MCH (27.0-33.0) pg 31.0 MCHC (32.0-36.0) % 32.8 RDW (11.8-14.1) % 12.7 Plt Count (130-400) 10^3/uL 224 MPV (8.0-11.0) fL 9.6 Immature Gran % 0.2 Neutrophils % 63.7 Lymphocytes % 26.2 Monocytes % 6.8 Eosinophils % 2.4 Basophils % 0.7 Nucleated RBC % % 0 Absolute Neutrophils (1.2-6.7) 10^3/uL 3.72 Absolute Lymphocytes (1.2-3.4) 10^3/uL 1.53 Absolute Monocytes (0.1-0.8) 10^3/uL 0.40 Absolute Eosinophils (0.0-0.7) 10^3/uL 0.14 Absolute Basophils (0.0-0.2) 10^3/uL 0.04 Procedures <CHANEL Calderon - Last Filed: 05/29/21 08:26> Epistaxis Control Time Out Performed: Yes Nostril: right Direct Inspection: yes Cautery Used: none Device Inserted: nasal tampon Device Size: 7 Patient Tolerated Procedure: well Complications: pain
[2021-05-26 11:18] VITALS: BP 148/74; PULSE 65; RESP 18; TEMP 36.6; O2SAT 98
== END 2021-05-26 11:20 | disposition home or self-care (01) ==
PROVIDERS: Emergency Provider Physician Assistant; PCP Family Medicine
DX: R04.0 Epistaxis (principal)
CPT/HCPCS: 30901; 36415; 85027; 85025; 85610

== ENCOUNTER 2021-05-26 17:36 | Emergency (ER) | payer MEDICARE, OTHER, SELFPAY ==
[2021-05-26 18:07] VITALS: BP 174/112; PULSE 76; RESP 16; TEMP 36.1; O2SAT 97
[2021-05-26 19:10] VITALS: BP 175/102; PULSE 80; RESP 18; TEMP 36.5; O2SAT 96
[2021-05-26 20:27] VITALS: BP 167/129; PULSE 78; TEMP 36.3; O2SAT 91
[2021-05-26 21:24] LABS: HCT 46.7 % (40.0-50.0); HGB 15.6 g/dL (13.5-17.5); MCH 30.8 pg (27.0-33.0); MCHC 33.4 % (32.0-36.0); MCV 92.1 fL (80-95); MPV 9.6 fL (8.0-11.0); Platelet Count 256 10^3/uL (130-400); RBC 5.07 10^6/uL (4.36-5.78); RDW 12.7 % (11.8-14.1); RDW-SD 43.2 fL; WBC 8.24 10^3/uL (4.4-10.8)
--- NOTE | 2021-05-26 21:30 | ED.GENADUL_ITS ---
Discharge Plan Disposition Patient Disposition: HOME Condition: Improving Discharge Details Clinical Impression: Acute anterior epistaxis Primary Care Provider: Catrina Steve ED Provider: Lowell Garza Home Meds and New Rx's Prescriptions: Continued glucosam-chond my-xwuryi-nu ac 1 EACH capsule 2 cap PO DAILY RF: 0 omeprazole magnesium [Prilosec OTC] 20 MG tablet,delayed release (DR/EC) 20 mg PO DAILY RF: 0 metoprolol succinate 100 mg tablet extended release 24 hr 100 mg PO DAILY Qty: 90 RF: 5 ibuprofen 200 MG tablet 400 mg PO PRN PRNRF: 0 acetaminophen [Acetaminophen Extra Strength] 500 MG tablet 500 mg PO Q6H PRN PRNQty: 60 RF: 3 No Action amoxicillin 875 mg tablet 875 mg PO BID 5 Days Qty: 10 RF: 0 Eliquis 5 mg tablet 5 mg PO BID Qty: 180 RF: 5 Discharge Instructions Additional Instructions: Leave current packing in place until you are seen by otolaryngology in clinic next week. May continue to hold your Eliquis given persistent bleeding. Return for bleeding that persist despite 20 minutes of pressure, or any other acute concerns. Your left anterior nares had chemical cautery applied this evening. Discharge Data Discharge Date/Time-TO BE ENTERED AT DEPARTURE: 05/26/21 22:05 Medical Decision Making A 85-year-old male with atrial fibrillation, anticoagulated with apixaban which she stopped a few days ago after developing epistaxis. He was seen earlier in the day and had a right anterior nasal tampon placed. Returns this evening with recurrent bleeding from the left nare. Small anterior area of bleeding identified on the nasal septum of the left nare. Transanemic acid was placed and then the area was cauterized chemically with cessation of bleeding. Patient also did have slight blushing of the right anterior nare I placed a gauze impregnated with Vaseline layered on top of the right nasal tampon with cessation of bleeding. Patient has freestanding follow-up in ENT clinic. He is stable and appropriate discharge to home, will return for any acute concerns HPI General Mode of arrival: ambulatory . Date/Time Provider Initiated Documentation: 05/26/21 18:35 . Limitations to Documentation: no limitations . Information obtained by: patient . History of Present Illness 85 year old M presents to the emergency department with the chief complaint of Epistaxis, recurrent, described as mild and similar to prior episodes, and is localized to the face. Patient reports no radiation. Patient started experiencing this hour(s) No relieving factors improve symptom(s), No exacerbating factors reported . Patient notes denies loss of appetite and nausea/vomiting. Patient did receive the following treatments prior to arrival, none Related Data Home Medications Medication Instructions Recorded Confirmed glucosam-chond qt-clyoqs-xl ac 2 cap PO DAILY 02/09/13 05/29/21 omeprazole magnesium [Prilosec OTC] 20 mg PO DAILY 04/06/14 05/29/21 acetaminophen [Acetaminophen Extra 500 mg PO Q6H PRN PRN #60 tab 07/16/17 05/29/21 Strength] ibuprofen 400 mg PO PRN PRN 07/16/17 05/29/21 apixaban 5 mg tablet 5 mg PO BID #180 tab 08/08/20 05/27/21 metoprolol succinate 100 mg 100 mg PO DAILY #90 tab 08/30/20 05/29/21 tablet,extended release 24 hr amoxicillin 875 mg tablet 875 mg PO BID 5 Days #10 tab 05/29/21 05/29/21 Previous Rx's Medication Instructions Recorded acetaminophen [Acetaminophen Extra 500 mg PO Q6H PRN PRN #60 tab 07/16/17 Strength] apixaban 5 mg tablet 5 mg PO BID #180 tab 08/08/20 metoprolol succinate 100 mg 100 mg PO DAILY #90 tab 08/30/20 tablet,extended release 24 hr amoxicillin 875 mg tablet 875 mg PO BID 5 Days #10 tab 05/29/21 Allergies Allergy/AdvReac Type Severity Reaction Status Date / Time No Known Allergies Allergy Verified 05/29/21 11:20 General Stated Complaint: Epistaxis GINA: 3 Review of Systems Narrative: 6 systems reviewed and otherwise negative. No weakness or lightheadedness. 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 Stomach cancer Sister No problems noted. Maternal Grandfather , age 70 Cancer Paternal Grandfather , age 46 Cancer of spinal column Paternal Grandmother , age 61 Cervical cancer Maternal Grandmother , age 91 No problems noted. Son No problems noted. Daughter No problems noted. Social History Smoking/Tobacco Use Status: Former Tobacco Use tobacco type: cigarettes Quit Date: 09/02/1963 Tobacco: How many years used: 12 Second Hand Exposure: Yes Smoking risk assessment performed?: Yes Alcohol Intake: current Alcohol Intake frequency: 0-2 drinks per day Alcohol type: wine and hard liquor Drug use: Never Substance use type: does not use Caregiver/Support person: No Household members: spouse Housing: house Communication Needs: Hard of Hearing and Corrective Lenses Do you need help understanding health information?: Never Pets and animals: Yes Pets and animals: dog(s) Sexually active: Yes Do you think of yourself as: straight/heterosexual Current gender identity: male What is your relationship status?: How often do you talk on the phone with friends or family?: decline to answer How often do you get together with friends or relatives?: decline to answer How often do you attend christian or alevism services?: decline to answer Do you belong to any clubs or organized social groups?: yes Panel score (0-1 are the most socially isolated patients): 2 What type of physical activity do you participate in: other Details: rowing, weights, machines Duration: 15-30 minutes/day Frequency: 3-4 times per week Ivy/Latter Day: Hinduism Special ivy needs: No Seatbelt use: always Helmet use: Yes Helmet use: sometimes Drive intox or ride w/intox auto driver: No Do you feel safe at home: Yes Do you feel safe in your relationship?: Yes Victim of physical abuse: No Victim of emotional abuse: No Victim of sexual abuse: No Would you like helpful sources: No Exam Narrative Exam Narrative: GEN: awake, alert, oriented 3. Pleasant, well groomed, interactive. HEAD: Normocephalic, atraumatic ENT: Mucous membranes moist, oropharynx unremarkable, nasal packing/tampon in right nare. Anterior left nare with scant blood present, external ear exam unremarkable EYES: PERRL, EOMI NECK: Full ROM, no CHELLE, no menigismus CHEST/RESP: Nontender, clear to auscultation bilateral, no wheeze/rhonchi/rales CARDIOVASCULAR: RRR, no murmur, rub frances. 2+ Rad pulse bilateral Neuro: Grossly normal neurologic exam, conversant, interactive. Psych: Speech fluent, thoughts congruent, affect normal Course Vital Signs Vital signs: Vital Signs Temperature 36.1 C L 05/26/21 18:07 Pulse 76 05/26/21 18:07 Respiratory Rate 16 05/26/21 18:07 Blood Pressure 174/112 H 05/26/21 18:07 Pulse Oximetry 97 05/26/21 18:07 Temperature 36.3 C L 05/26/21 20:27 Temperature Source Tympanic 05/26/21 20:27 Pulse 78 05/26/21 20:27 Respiratory Rate 18 05/26/21 19:10 Respiratory Effort 05/26/21 19:10 Respiratory Depth Normal 05/26/21 19:10 Respiratory Pattern Normal 05/26/21 19:10 Blood Pressure 167/129 H 05/26/21 20:27 Blood Pressure Mean 126 05/26/21 19:10 Blood Pressure Position Sitting 05/26/21 19:10 Pulse Oximetry 91 L 05/26/21 20:27 Oxygen Delivery Method Room Air 05/26/21 20:27 Oxygen Flow Rate 0 05/26/21 20:27 Pain Level 7 05/26/21 19:10 Lab/Test Results Lab/Test Results: Laboratory Tests Range/Units 05/26/21 21:15 WBC (4.4-10.8) 10^3/uL 8.24 D RBC (4.36-5.78) 10^6/uL 5.07 Hgb (13.5-17.5) g/dL 15.6 Hct (40.0-50.0) % 46.7 MCV (80-95) fL 92.1 MCH (27.0-33.0) pg 30.8 MCHC (32.0-36.0) % 33.4 RDW (11.8-14.1) % 12.7 Plt Count (130-400) 10^3/uL 256 MPV (8.0-11.0) fL 9.6
[2021-05-26 21:34] LABS: INR 1.1 (0.9-1.1)
[2021-05-26] MEDS: Tranexamic Acid 1,000 MG/10 ML VIAL 500 MG NS (21:43)
[2021-05-26] MEDS: Silver Nitrate Stick 1 EACH (21:43)
== END 2021-05-26 22:05 | disposition home or self-care (01) ==
PROVIDERS: Emergency Provider Emergency Medicine; PCP Family Medicine
DX: R04.0 Epistaxis (principal)
CPT/HCPCS: 30901; 85027; 85610

== ENCOUNTER 2021-05-26 23:22 | Emergency (ER) | payer MEDICARE, OTHER, SELFPAY ==
[2021-05-26 23:30] VITALS: BP 157/113; PULSE 58; RESP 18; TEMP 36.9; O2SAT 98
--- NOTE | 2021-05-26 23:31 | ED.GENADUL_ITS ---
Discharge Plan Disposition Patient Disposition: HOME Condition: Good Discharge Details Clinical Impression: Epistaxis Primary Care Provider: Catrina Steve ED Provider: Jayson Dickerson Home Meds and New Rx's Prescriptions: Continued glucosam-chond pi-[id number]-om ac 1 EACH capsule 2 cap PO DAILY RF: 0 omeprazole magnesium [Prilosec OTC] 20 MG tablet,delayed release (DR/EC) 20 mg PO DAILY RF: 0 metoprolol succinate 100 mg tablet extended release 24 hr 100 mg PO DAILY Qty: 90 RF: 5 ibuprofen 200 MG tablet 400 mg PO PRN PRNRF: 0 acetaminophen [Acetaminophen Extra Strength] 500 MG tablet 500 mg PO Q6H PRN PRNQty: 60 RF: 3 No Action Eliquis 5 mg tablet 5 mg PO BID Qty: 180 RF: 5 Discharge Instructions Additional Instructions: Hopefully the gel foam forms enough of a clotting barrier to prevent further bleeding. Try not to remove this piece of foam over the next 24 hours. If recurrent bleeding. Should the nostrils together as before. If continued bleeding despite pressure for more than 15 to 20 minutes return to ED. Only other course of action will be to place a second nasal packing. Follow-up with ENT next week as planned. Medical Decision Making Patient is not actively bleeding though I can see where he went from in the area that had been previously cauterized. Would really like to avoid a second nasal packing. Patient was also like to avoid. Will try a piece of Gelfoam and compression to see if this will control further epistaxis. Gelfoam in place. No bleeding. Will hold off packing left nares in hopes that Gelfoam remains secured and allows clotting/eschar to occur. Medical Records Medical records reviewed: Yes I reviewed the patient's medical records. HPI General Mode of arrival: ambulatory . Date/Time Provider Initiated Documentation: 05/26/21 23:28 . Limitations to Documentation: no limitations . Information obtained by: patient, RN notes reviewed and old records reviewed . HPI Narrative: Patient returns to ED for the third time today with epistaxis. Presented earlier today with right sided bleeding and ultimately had packing placed. Subsequently returned in the early evening with left-sided bleeding. This was treated with TXA and cauterization. Once home he seemed to be fine until a little less than an hour prior to arrival tonight he began bleeding profusely from the left nostril again. He has not been on his Eliquis now for over a week. He has managed to get the bleeding to stop at this point came in for repeat evaluation due to the amount of bleeding he had had. Related Data Home Medications Medication Instructions Recorded Confirmed glucosam-chond aa-rgltig-py ac 2 cap PO DAILY 02/09/13 05/26/21 omeprazole magnesium [Prilosec OTC] 20 mg PO DAILY 04/06/14 05/26/21 acetaminophen [Acetaminophen Extra 500 mg PO Q6H PRN PRN #60 tab 07/16/17 05/26/21 Strength] ibuprofen 400 mg PO PRN PRN 07/16/17 05/26/21 apixaban 5 mg tablet 5 mg PO BID #180 tab 08/08/20 05/26/21 metoprolol succinate 100 mg 100 mg PO DAILY #90 tab 08/30/20 05/26/21 tablet,extended release 24 hr Previous Rx's Medication Instructions Recorded acetaminophen [Acetaminophen Extra 500 mg PO Q6H PRN PRN #60 tab 07/16/17 Strength] apixaban 5 mg tablet 5 mg PO BID #180 tab 08/08/20 metoprolol succinate 100 mg 100 mg PO DAILY #90 tab 08/30/20 tablet,extended release 24 hr Allergies Allergy/AdvReac Type Severity Reaction Status Date / Time No Known Allergies Allergy Verified 05/26/21 18:10 General GINA: 3 Review of Systems Narrative: As documented in HPI otherwise negative as below. 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 Stomach cancer Sister No problems noted. Maternal Grandfather , age 70 Cancer Paternal Grandfather , age 46 Cancer of spinal column Paternal Grandmother , age 61 Cervical cancer Maternal Grandmother , age 91 No problems noted. Son No problems noted. Daughter No problems noted. Social History Smoking/Tobacco Use Status: Former Tobacco Use tobacco type: cigarettes Quit Date: 09/02/1963 Tobacco: How many years used: 12 Second Hand Exposure: Yes Smoking risk assessment performed?: Yes Alcohol Intake: current Alcohol Intake frequency: 0-2 drinks per day Alcohol type: wine and hard liquor Drug use: Never Substance use type: does not use Caregiver/Support person: No Household members: spouse Housing: house Communication Needs: Hard of Hearing and Corrective Lenses Do you need help understanding health information?: Never Pets and animals: Yes Pets and animals: dog(s) Sexually active: Yes Do you think of yourself as: straight/heterosexual Current gender identity: male What is your relationship status?: How often do you talk on the phone with friends or family?: decline to answer How often do you get together with friends or relatives?: decline to answer How often do you attend druze or holiness services?: decline to answer Do you belong to any clubs or organized social groups?: yes Panel score (0-1 are the most socially isolated patients): 2 What type of physical activity do you participate in: other Details: rowing, weights, machines Duration: 15-30 minutes/day Frequency: 3-4 times per week Ivy/Zoroastrian: Pentecostalism Special ivy needs: No Seatbelt use: always Helmet use: Yes Helmet use: sometimes Drive intox 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 HEENT: NC/AT. Normal facial exam. Right nares with packing in place and no bleeding. Left nares with no active bleeding. Area of cauterization noted on left anterior. Small area of recurrent bleeding noted. Eyes: Normal conjunctiva and sclera. Neck: Supple. Trachea midline. Lungs: Normal respiratory effort. Cor: Irr/Irr. Good radial pulses. Neuro: A+O x 3. Normal speech, mentation, gait. Cranial nerves II - XII grossly intact. No gross motor or sensory deficit. Procedures Epistaxis Control Nostril: left Direct Inspection: yes and anterior source identified Cautery Used: none Device Inserted: hemostatic dressing (gel foam) Patient Tolerated Procedure: well
[2021-05-27 00:07] VITALS: BP 131/91
== END 2021-05-27 00:12 | disposition home or self-care (01) ==
PROVIDERS: Emergency Provider Emergency Medicine; PCP Family Medicine
DX: R04.0 Epistaxis (principal)
CPT/HCPCS: 30901

== ENCOUNTER 2021-05-27 03:14 | Emergency (ER) | payer MEDICARE, OTHER, SELFPAY ==
[2021-05-27] VITALS (22 sets, daily range): BP systolic 138–149; BP diastolic 79–97; PULSE 63–90; RESP 18; TEMP 36.3; O2SAT 93–98
[2021-05-27] MEDS: Tranexamic Acid 1,000 MG/10 ML VIAL 1000 MG NS (03:30)
--- NOTE | 2021-05-27 03:35 | ED.GENADUL_ITS ---
Discharge Plan Disposition Patient Disposition: HOME Condition: Good Discharge Details Clinical Impression: Epistaxis Primary Care Provider: Catrina Steve ED Provider: Jayson Dickerson Meds and New Rx's Prescriptions: Continued glucosam-chond nj-fantzk-yh ac 1 EACH capsule 2 cap PO DAILY RF: 0 omeprazole magnesium [Prilosec OTC] 20 MG tablet,delayed release (DR/EC) 20 mg PO DAILY RF: 0 metoprolol succinate 100 mg tablet extended release 24 hr 100 mg PO DAILY Qty: 90 RF: 5 ibuprofen 200 MG tablet 400 mg PO PRN PRNRF: 0 acetaminophen [Acetaminophen Extra Strength] 500 MG tablet 500 mg PO Q6H PRN PRNQty: 60 RF: 3 No Action Eliquis 5 mg tablet 5 mg PO BID Qty: 180 RF: 5 Discharge Instructions Additional Instructions: Hopefully, we have taken care of the problem. Follow-up with ENT on Saturday as planned. Return to ED for any further issues. Medical Decision Making There is no bleeding from the left nares. Gelfoam has fallen out but there is no evidence of bleeding from the left. Patient reports bleeding coming from right despite having balloon packing in. Unknown what size packing as initial note from earlier not completed. Elected to remove the old packing and replace with 7.5 posterior balloon packing soaked in 1000 mg of TXA. When all packing removed clot manually removed and thenares was inspected with no obvious source of bleeding. New packing placed without difficulty and balloon blown up. Patient will be observed in the department for further bleeding. Patient observed in over 3 hours with no recurrent bleeding. Plan for discharge and follow-up with ENT on Saturday as planned. Return to the if further problems. HPI General Mode of arrival: ambulatory . Date/Time Provider Initiated Documentation: 05/27/21 03:34 . Limitations to Documentation: no limitations . Information obtained by: patient . HPI Narrative: Patient returns with large amount of bleeding around and behind the packing in the right nares. Coughed up a bunch of clot. Arrives here with bleeding under control but reports large amount of blood on the floor at home. This is his fourth visit in 24 hours. He is a little bit dizzy but is also quite anxious. Denies chest pain or shortness of breath. Related Data Home Medications Medication Instructions Recorded Confirmed glucosam-chond bw-ltisaq-ka ac 2 cap PO DAILY 02/09/13 05/27/21 omeprazole magnesium [Prilosec OTC] 20 mg PO DAILY 04/06/14 05/27/21 acetaminophen [Acetaminophen Extra 500 mg PO Q6H PRN PRN #60 tab 07/16/17 05/27/21 Strength] ibuprofen 400 mg PO PRN PRN 07/16/17 05/27/21 apixaban 5 mg tablet 5 mg PO BID #180 tab 08/08/20 05/27/21 metoprolol succinate 100 mg 100 mg PO DAILY #90 tab 08/30/20 05/27/21 tablet,extended release 24 hr Previous Rx's Medication Instructions Recorded acetaminophen [Acetaminophen Extra 500 mg PO Q6H PRN PRN #60 tab 07/16/17 Strength] apixaban 5 mg tablet 5 mg PO BID #180 tab 08/08/20 metoprolol succinate 100 mg 100 mg PO DAILY #90 tab 08/30/20 tablet,extended release 24 hr Allergies Allergy/AdvReac Type Severity Reaction Status Date / Time No Known Allergies Allergy Verified 05/27/21 03:27 General Stated Complaint: Epistaxis GINA: 3 Review of Systems Narrative: As documented in HPI otherwise negative as below. 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 Stomach cancer Sister No problems noted. Maternal Grandfather , age 70 Cancer Paternal Grandfather , age 46 Cancer of spinal column Paternal Grandmother , age 61 Cervical cancer Maternal Grandmother , age 91 No problems noted. Son No problems noted. Daughter No problems noted. Social History Smoking/Tobacco Use Status: Former Tobacco Use tobacco type: cigarettes Quit Date: 09/02/1963 Tobacco: How many years used: 12 Second Hand Exposure: Yes Smoking risk assessment performed?: Yes Alcohol Intake: current Alcohol Intake frequency: 0-2 drinks per day Alcohol type: wine and hard liquor Drug use: Never Substance use type: does not use Caregiver/Support person: No Household members: spouse Housing: house Communication Needs: Hard of Hearing and Corrective Lenses Do you need help understanding health information?: Never Pets and animals: Yes Pets and animals: dog(s) Sexually active: Yes Do you think of yourself as: straight/heterosexual Current gender identity: male What is your relationship status?: How often do you talk on the phone with friends or family?: decline to answer How often do you get together with friends or relatives?: decline to answer How often do you attend latter-day or orthodox services?: decline to answer Do you belong to any clubs or organized social groups?: yes Panel score (0-1 are the most socially isolated patients): 2 What type of physical activity do you participate in: other Details: rowing, weights, machines Duration: 15-30 minutes/day Frequency: 3-4 times per week Ivy/Evangelical: Gnosticist Special ivy needs: No Seatbelt use: always Helmet use: Yes Helmet use: sometimes Drive intox or ride w/intox 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 HEENT: NC/AT. Normal facial exam. Packing in place right nares. Gelfoam has fallen out of left nares. No active bleeding. No oropharyngeal/posterior oroph aryngeal bleeding. Eyes: Normal conjunctiva and sclera. Neck: Supple. Trachea midline. Lungs: Normal respiratory effort. Cor: Good radial pulses Neuro: A+O x 3. Normal speech, mentation, gait. Cranial nerves II - XII grossly intact. No gross motor or sensory deficit. Ext: No C/C/E. Skin: Warm and dry. Course Vital Signs Vital signs: Vital Signs Temperature 97.3 F L 05/27/21 03:23 Pulse 76 05/27/21 03:23 Respiratory Rate 18 05/27/21 03:23 Blood Pressure 139/79 05/27/21 03:23 Pulse Oximetry 96 05/27/21 03:23 Temperature 97.3 F L 05/27/21 03:23 Temperature Source Temporal Artery Scan 05/27/21 03:23 Pulse 76 05/27/21 03:23 Respiratory Rate 18 05/27/21 03:23 Respiratory Effort Non-Labored 05/27/21 03:28 Blood Pressure 139/79 05/27/21 03:23 Blood Pressure Position Sitting 05/27/21 03:23 Pulse Oximetry 96 05/27/21 03:23 Oxygen Delivery Method Room Air 05/27/21 03:23 Oxygen Flow Rate 0 05/27/21 03:23 Procedures Epistaxis Control Nostril: right Direct Inspection: yes and unable to visualize Clots Removed by: manually Cautery Used: none Device Inserted: hemostatic balloon (soaked in TXA) Patient Tolerated Procedure: well and no complications
--- NOTE | 2021-05-27 03:39 | NUR.NOTE ---
Nursing Note: Patient resting quietly in bed with new nasal packing in place right nare, at present bleeding controlled. Will closely monitor for recurrent nasal bleeding.
== END 2021-05-27 07:12 | disposition home or self-care (01) ==
PROVIDERS: Emergency Provider Emergency Medicine; PCP Family Medicine
DX: R04.0 Epistaxis (principal)
CPT/HCPCS: 30905

== ENCOUNTER 2022-06-18 11:41 | Outpatient (CLI) | payer MEDICARE, OTHER, SELFPAY ==
[2022-06-18 12:17] LABS: HCT 44.3 % (40.0-50.0); HGB 14.8 g/dL (13.5-17.5); MCH 30.2 pg (27.0-33.0); MCHC 33.4 % (32.0-36.0); MCV 90 fL (80-95); MPV 9.7 fL (8.0-11.0); Platelet Count 252 10^3/uL (130-400); RDW 13.3 % (11.8-14.1); WBC 9.18 10^3/uL (4.4-10.8)
[2022-06-18 12:57] LABS: ALT 43 U/L (16-63); AST 28 U/L (15-37); Albumin 3.8 g/dL (3.4-5.0); Alkaline Phosphatase 48 U/L (46-116); Anion Gap 9.3 mmol/L (3-11); BUN 19 mg/dL (7-18); Bilirubin, Total 0.6 mg/dL (0.2-1.0); CO2 24.7 mmol/L (21.0-32.0); Calcium 9.1 mg/dL (8.5-10.1); Chloride 105 mmol/L (98-107); Glucose 114 mg/dL (74-106); Potassium 4.3 mmol/L (3.5-5.1); Sodium 139 mmol/L (136-145); Total Protein 7.7 g/dL (6.4-8.2)
== END 2022-06-18 11:42 | disposition home or self-care (01) ==
LOC: LOS 11:42
PROVIDERS: PCP Family Medicine; Visit Provider Family Medicine
DX: I48.91 Unspecified atrial fibrillation (principal); R03.0 Elevated blood-pressure reading, without diagnosis of hypertension; B02.9 Zoster without complications
CPT/HCPCS: 36415; 80053; 85027

== ENCOUNTER 2022-08-13 09:55 | Emergency (ER) | payer MEDICARE, OTHER, SELFPAY ==
[2022-08-13 09:58] VITALS: BP 170/113; PULSE 82; RESP 16; O2SAT 98
--- NOTE | 2022-08-13 11:05 | W.ED.GENAD ---
Discharge Plan Disposition Patient Disposition: Home Condition: Stable Discharge Details Clinical Impression: C1 cervical fracture Primary Care Provider: Catrina Steve ED Provider: Sriram Monae Home Meds and New Rx's Prescriptions: Continued Eliquis 5 mg tablet 5 mg PO BID Qty: 180 5RF metoprolol succinate 100 mg tablet extended release 24 hr 100 mg PO DAILY Qty: 90 5RF nystatin 100,000 unit/gram powder 1 applic topical BID Qty: 60 4RF glucosam-chond sk-mnnren-um ac 1 EACH capsule 2 cap PO DAILY omeprazole magnesium [Prilosec OTC] 20 MG tablet,delayed release (DR/EC) 20 mg PO DAILY acetaminophen [Acetaminophen Extra Strength] 500 MG tablet 500 mg PO Q6H PRN PRNQty: 60 3RF Discharge Instructions Instructions: Cervical Fracture (ED) Additional Instructions: Please do not remove cervical collar as you have a very significant neck fracture. [facility] neurosurgery clinic will contact you tomorrow for arrangement of urgent follow-up appointment in their office. If you do not hear from them tomorrow morning please contact them. You may continue to take vopw-dlg-brpajxo acetaminophen as needed for discomfort just do not exceed 3000 mg in a 24-hour period. If you develop any new or significant worsening of symptoms including difficulty breathing coming numbness tingling, weakness or neurological dysfunction return immediately to the emergency department for reassessment. Referrals: [facility] [Outside] - 1 day Discharge Data Discharge Date/Time-TO BE ENTERED AT DEPARTURE: 08/13/22 17:52 Medical Decision Making <CHANEL Leal - Last Filed: 08/13/22 22:57> Patient is a pleasant 86-year-old guseh-tbza-vblgcooy male presenting today with chief complaint of head injury and neck pain. He reports that yesterday he was filling his wood stove when he lost his balance with a large log and felt tipping forward. States that he is arms extended to try to catch himself with did strike the forehead and caused jarring to the neck. He states he subsequently went to bed and woke up feeling very stiff. Has limited range of motion of his neck and shoulders. Pain does not radiate into the upper extremities but he states that with movement of the upper extremities or neck he has significant discomfort. He has not tried anything for his discomfort as of yet today. He denies any confusion, nausea/vomiting, shortness of breath, visual changes, weakness, sensory deficits. Patient is anticoagulated and has been taking his medications as prescribed. On exam, patient appears nontoxic. He is hemodynamically stable. He is hypertensive at 170/113 but is very stiff and uncomfortable. Does have a history of hypertension. He has a slight abrasion to the upper aspect of his forehead. He is neurologically intact. He has no midline c-spine pain or elsewhere along the length of the spine. However, he is very tight L>R with signficant limitations to his C-spine mobility. With attempts at ROM, he has pain along the lateral aspects. While he endorsed pain in the shoulders, it is more pain that radiates during movement of the neck. He has no pain with palpation of the shoulders. 2+ distal pulses. No pain with palpation of the chest, abdomen, pelvis or extremities. Concerned that patient struck his head and is anticoagulated. He describes an injury which caused mild head injury and hyperextension of his neck. As he does not have any midline pain and his discomfort seems to be lateral during times of attempted ROM, concerned for muscle spasm causing a bulk of his pain. Will give APAP and methocarbamol to hlep with discomfort/spasm. Will obtain CT of head and c-spine. No evidence of trauma elsewhere. Patient reports feeling improved after above intervention. BRAIN: There are no skull fractures nor fluid in the visualized paranasal sinuses. There is no evidence of intracranial hemorrhage, mass effect, or shift of midline structures.? There are no extra-axial fluid collections.? The ventricles are not enlarged or shifted and there is no blood within the ventricular system nor within the basal cisterns. Involutional change consistent with this patient's advanced age. CERVICAL SPINE: There are acute fractures in the upper cervical spine. There is nondisplaced oblique fracture in the mid aspect of the odontoid.? In addition, there are multiple fractures in the C1 arch both left and right of midline.? Approximately 2 millimeters displacement but no prominent compromise of the canal at this level. No additional fractures seen lower down in the cervical spine although there is multilevel chronic type facet arthropathy and advanced multilevel disc space narrowing most prominent at C5-6 and C6-7 levels.? No facet malalignment evident.? There is mild degenerative anterolisthesis of C7 upon T1. IMPRESSION: Fractures of C1 arch and nondisplaced mid odontoidfracture.? No prominent canal compromise. Multilevel degenerative findings below this level but no additional fractures evident. No acute intracranial findings. Reevaluated the patient. Discussed findings with the patient. Collar applied although I am concerned about fit. It is holding well but will lead to some pressure points if we are not able to transition him to another prior to d/c. He remains nuerovasculaly intact. Consulted with Dr. Molina at [facility]. She will call back, questioning CTA vs. MR for further evaluation. She advised that she will call back with further instructions. As there is a potential for CTA, will obtain baseline labs. At patient request, called Bharti, At the end of my shift, care transitioned to Jack Monae NP with labs and repeat discussion with neurosurgery pending. 1600-report received from CHANEL Hyman. Patient pending neurosurgery consult from [facility]. Spoke to Dr. Molina at [facility]. Her recommendation was to keep patient in rigid collar unless Vilonia collar is available. She did request that patient have imaging performed with plain film 3 view AP lateral and odontoid views. Plan of care will be for patient to leave collar on this evening and to follow-up with neurosurgery tomorrow at [facility] in their clinic for further treatment and stabilization of neck injury. Imaging was performed and pushed to [facility]. Patient reassessed and continues to state no neurological symptoms and that he is feeling better than presentation. Did offer patient narcotics on limited quantity for home use but he states he will just take uano-ykx-kpaiydi pain medication as needed for discomfort. Will discharge patient with close monitoring of symptoms and low threshold to return to the emergency department for new or worsening symptoms. After discussion of diagnosis and plan of care patient has no further needs, questions, or concerns and states clear understanding to return to the emergency department for any worsening symptoms. This documentation was generated using [employer] system, please disregard any oddities of phrase or misspellings. Sign Out Yes <Sriram Monae NP - Last Filed: 08/14/22 16:50> Patient is a pleasant 86-year-old gyxgu-gmra-fvzqjewa male presenting today with chief complaint of head injury and neck pain. He reports that yesterday he was filling his wood stove when he lost his balance with a large log and felt tipping forward. States that he is arms extended to try to catch himself with did strike the forehead and caused jarring to the neck. He states he subsequently went to bed and woke up feeling very stiff. Has limited range of motion of his neck and shoulders. Pain does not radiate into the upper extremities but he states that with movement of the upper extremities or neck he has significant discomfort. He has not tried anything for his discomfort as of yet today. He denies any confusion, nausea/vomiting, shortness of breath, visual changes, weakness, sensory deficits. Patient is anticoagulated and has been taking his medications as prescribed. On exam, patient appears nontoxic. He is hemodynamically stable. He is hypertensive at 170/113 but is very stiff and uncomfortable. Does have a history of hypertension. He has a slight abrasion to the upper aspect of his forehead is slightly hypertensive BRAIN: There are no skull fractures nor fluid in the visualized paranasal sinuses. There is no evidence of intracranial hemorrhage, mass effect, or shift of midline structures.? There are no extra-axial fluid collections.? The ventricles are not enlarged or shifted and there is no blood within the ventricular system nor within the basal cisterns. Involutional change consistent with this patient's advanced age. CERVICAL SPINE: There are acute fractures in the upper cervical spine. There is nondisplaced oblique fracture in the mid aspect of the odontoid.? In addition, there are multiple fractures in the C1 arch both left and right of midline.? Approximately 2 millimeters displacement but no prominent compromise of the canal at this level. No additional fractures seen lower down in the cervical spine although there is multilevel chronic type facet arthropathy and advanced multilevel disc space narrowing most prominent at C5-6 and C6-7 levels.? No facet malalignment evident.? There is mild degenerative anterolisthesis of C7 upon T1. IMPRESSION: Fractures of C1 arch and nondisplaced mid odontoidfracture.? No prominent canal compromise. Multilevel degenerative findings below this level but no additional fractures evident. No acute intracranial findings. Reevaluated the patient. Collar applied although I am concerned about fit. It is holding well but will lead to some pressure points if we are not able to transition him to another prior to d/c. He remains nuerovasculaly intact. Consulted with Dr. Molina at [facility]. She will call back, questioning CTA vs. MR for further evaluation. At patient request, called Bharti, 1600-report received from CHANEL Hyman. Patient pending neurosurgery consult from [facility]. Spoke to Dr. Molina at [facility]. Her recommendation was to keep patient in rigid collar unless Vilonia collar is available. She did request that patient have imaging performed with plain film 3 view AP lateral and odontoid views. Plan of care will be for patient to leave collar on this evening and to follow-up with neurosurgery tomorrow at [facility] in their clinic for further treatment and stabilization of neck injury. Imaging was performed and pushed to [facility]. Patient reassessed and continues to state no neurological symptoms and that he is feeling better than presentation. Did offer patient narcotics on limited quantity for home use but he states he will just take tsnw-lhp-mlpmkld pain medication as needed for discomfort. Will discharge patient with close monitoring of symptoms and low threshold to return to the emergency department for new or worsening symptoms. After discussion of diagnosis and plan of care patient has no further needs, questions, or concerns and states clear understanding to return to the emergency department for any worsening symptoms. This documentation was generated using [employer] dictation system, please disregard any oddities of phrase or misspellings. HPI <CHANEL Leal - Last Filed: 08/13/22 22:57> General Date/Time Provider Initiated Documentation: 08/13/22 10:30. Limitations to Documentation: no limitations. Information obtained by: patient and RN notes reviewed. History of Present Illness 86 year old M presents to the emergency department with the chief complaint of neck pain and stiffness, described as severe, with intensity rated at 9. Quality is described as aching (stiffness), and is localized to the neck. Patient extremity (toward bilateral shoulders). Patient started experiencing this day(s) (1) and it has been constant. Immobilization improves symptom(s), Medication worsens symptoms . Patient notes no other symptoms.. Patient did receive the following treatments prior to arrival, none Related Data Home Medications Medication Instructions Recorded Confirmed ywucilqvaz-kwpsaxbhqr-nqiguvjo-hyalur 2 cap PO DAILY 02/09/13 08/13/22 ac 375 mg-300 mg-175 mg-2 mg cap omeprazole magnesium 20 mg 20 mg PO DAILY 04/06/14 08/13/22 tablet,delayed release (Prilosec OTC) acetaminophen 500 mg tablet 500 mg PO Q6H PRN PRN #60 tabs 07/16/17 08/13/22 (Acetaminophen Extra Strength) apixaban 5 mg tablet (Eliquis) 5 mg PO BID #180 tabs 10/17/21 08/13/22 metoprolol succinate 100 mg 100 mg PO DAILY #90 tabs 10/17/21 08/13/22 tablet,extended release 24 hr nystatin 100,000 unit/gram topical 1 applic topical BID #60 grams 06/18/22 08/13/22 powder Previous Rx's Medication Instructions Recorded acetaminophen 500 mg tablet 500 mg PO Q6H PRN PRN #60 tabs 07/16/17 (Acetaminophen Extra Strength) apixaban 5 mg tablet (Eliquis) 5 mg PO BID #180 tabs 10/17/21 metoprolol succinate 100 mg 100 mg PO DAILY #90 tabs 10/17/21 tablet,extended release 24 hr nystatin 100,000 unit/gram topical 1 applic topical BID #60 grams 06/18/22 powder Allergies Allergy/AdvReac Type Severity Reaction Status Date / Time No Known Allergies Allergy Verified 08/13/22 10:01 General Stated Complaint: Trauma GINA: 3 Review of Systems <CHANEL Leal - Last Filed: 08/13/22 22:57> Constitutional Constitutional: Reports as per HPI, Denies chills, Reports fatigue, Denies fever(s), Denies frequent falls and Denies weakness Eyes Eyes: Reports as per HPI, Denies blurry vision and Denies change in vision ENT Ears, Nose, Mouth, and Throat: Denies vertigo Cardiovascular Cardiovascular: Reports as per HPI, Denies chest pain, Denies lightheadedness, Denies radiating jaw, neck or arm pain and Denies dyspnea on exertion Respiratory Respiratory: Reports as per HPI, Denies cough and Denies dyspnea on exertion Gastrointestinal Gastrointestinal: Reports as per HPI, Denies abdominal pain, Denies change in bowel habits, Denies nausea and Denies vomiting Genitourinary Genitourinary: Reports system reviewed and no additional complaints, except as documented (denies change in urinary habits) Musculoskeletal Musculoskeletal: Reports as per HPI, Denies back pain, Denies myalgias, Denies muscle cramps and Denies numbness Integumentary/Breasts Skin/Breast: Reports as per HPI and Denies rash Neurologic Neurologic: Reports as per HPI, Denies abnormal movements, Denies abnormal speech, Denies behavioral changes, Denies confusion, Denies vertigo, Denies frequent falls, Denies localized weakness, Denies numbness, Denies sensory deficit and Denies weakness Psychiatric Psychiatric: Denies behavioral changes and Denies confusion Endocrine Endocrine: Reports fatigue PFSH <CHANEL Leal - Last Filed: 08/13/22 22:57> All Active Problems (Updated 08/13/22 @ 17:46 by Sriram Monae NP) C1 cervical fracture (Acute) Sensorineural hearing loss, bilateral (Acute) Conductive hearing loss, external ear (Acute) Impacted cerumen, right ear (Acute) Epistaxis (Acute) Acute anterior epistaxis (Acute) Encounter for annual physical exam (Acute) Elevated blood pressure reading (Acute) Atrial fibrillation (Chronic) Herpes zoster (Acute) 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) Hypertriglyceridemia (Chronic) Hyperlipidemia (Chronic 12/02/07) HX of low HDL's Hip pain (Chronic 02/09/13) Hemorrhoids (Chronic 12/02/07) Hearing loss (Chronic) Diverticulosis of colon without diverticulitis (Chronic 02/04/08) 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 Stomach cancer Sister No problems noted. Maternal Grandfather , age 70 Cancer Paternal Grandfather , age 46 Cancer of spinal column Paternal Grandmother , age 61 Cervical cancer Maternal Grandmother , age 91 No problems noted. Son No problems noted. Daughter No problems noted. Social History (Updated 06/20/22 @ 16:31 by Wendy Garcia) Smoking/Tobacco Use Status: Former Tobacco Use tobacco type: cigarettes Quit Date: 09/02/1963 Tobacco: How many years used: 12 Second Hand Exposure: Yes Smoking risk assessment performed?: Yes Alcohol Intake: current Alcohol Intake frequency: a few times a week Alcohol type: wine and hard liquor Drug use: Never Substance use type: does not use Caregiver/Support person: No Household members: spouse Housing: house Communication Needs: Hard of Hearing and Corrective Lenses Do you need help understanding health information?: Never Pets and animals: Yes Pets and animals: dog(s) Sexually active: Yes Do you think of yourself as: straight/heterosexual Current gender identity: male What is your relationship status?: How often do you talk on the phone with friends or family?: three or more times per week How often do you get together with friends or relatives?: three or more times per week How often do you attend zoroastrianism or yazdanism services?: decline to answer Do you belong to any clubs or organized social groups?: no Panel score (0-1 are the most socially isolated patients): 2 What type of physical activity do you participate in: bicycling and weight lifting Duration: 45-60 minutes/day Frequency: 3-4 times per week Ivy/Pentecostalism: [employer] Special ivy needs: No Seatbelt use: always Helmet use: Yes Helmet use: sometimes Drive intox or ride w/intox hearse driver: No Do you feel safe at home: Yes Do you feel safe in your relationship?: Yes Victim of physical abuse: No Victim of emotional abuse: No Victim of sexual abuse: No Would you like helpful sources: No Exam <CHANEL Leal - Last Filed: 08/13/22 22:57> Const General: cooperative, healthy appearing, uncomfortable, no acute distress, well developed and well groomed Nutritional Appearance: average body habitus and well nourished Orientation: alert, awake and oriented x3 HENMT Head: normal to inspection, no palpable skull fracture, normocephalic and atraumatic Ears: hearing grossly normal bilaterally, external ears normal and TM's normal bilaterally (hearing aids removed) General nose exam: external nose normal Mouth: oral mucosae normal and moist mucous membranes Throat: posterior oropharynx normal Eyes General: appearance normal, both eyes and all related structures Alignment and Position: alignment normal Periorbital: periorbital findings normal Eyelids: eyelids normal Sclera: sclerae normal Cornea: corneas normal Pupils: PERRL EOM: EOM intact bilaterally Neck Neck: normal visual inspection, limited ROM and no lymphadenopathy Chest Chest: normal inspection of the chest, normal palpation of entire chest wall, no crepitus, no localized rib tenderness and no tenderness Resp Effort & Inspection: normal respiratory effort, able to speak in complete sentences and no respiratory distress Auscultation: clear to auscultation bilaterally, no rales, no rhonchi and no wheezes Cardio Rate: regular rate Rhythm: regular rhythm Heart Sounds: S1 normal and S2 normal GI Inspection: normal to inspection and non-distended Palpation: soft, no hepatosplenomegaly, not firm, no guarding, not rigid and nontender Percussion: normal to percussion Auscultation: normal bowel sounds Back/Spine/Pelvis Cervical Spine: No normal cervical lordosis, No cervical ROM normal, loss of normal cervical lordosis, cervical muscular tenderness, pain with cervical ROM, cervical spasm (L>R), No cervical spinal tenderness (no midline pain) and No step off deformity Thoracic/Lumbar Spine: thoracic and lumbar spine normal to inspection, No paraspinal tenderness, No thoraco-lumbar ROM limited, No thoracic spinal tenderness and No lumbar spinal tenderness Skin General skin exam: no rashes or lesions noted Neuro General: patient alert, patient awake and patient oriented x3 Cranial Nerves: CN's II-XI intact bilaterally Cognition: normal cognition Speech: speech normal Gait: normal gait Motor: muscle tone normal throughout, strength 5/5 throughout, no pronator drift, no movement abnormalities noted and no fasciculations Sensory Exam: no sensory deficits noted Coordination: fvwjwf-gh-hcqv test normal and vmrk-pc-jmsb test normal Extrem General: normal to inspection, capillary refill normal, no pedal edema and no calf tenderness Psych Appearance: grossly normal and well kempt Mental Status: mental status grossly normal Speech and Movement: speech and movement normal Course <CHANEL Leal - Last Filed: 08/13/22 22:57> Vital Signs Vital signs: Vital Signs Pulse 82 08/13/22 09:58 Respiratory Rate 16 08/13/22 09:58 Blood Pressure 170/113 H 08/13/22 09:58 Pulse Oximetry 98 08/13/22 09:58 Temperature Source Oral 08/13/22 09:58 Pulse 82 08/13/22 09:58 Respiratory Rate 16 08/13/22 09:58 Respiratory Effort 08/13/22 10:02 Blood Pressure 170/113 H 08/13/22 09:58 Blood Pressure Position Sitting 08/13/22 09:58 Pulse Oximetry 98 08/13/22 09:58 Oxygen Delivery Method Room Air 08/13/22 09:58 Oxygen Flow Rate 0 08/13/22 09:58 Pain Level 9 08/13/22 09:58 Sign Out <CHANEL Leal - Last Filed: 08/13/22 22:57> Sign Out Data: Sign Out Comment: Care transitioned to Jack Monae NP. Call back from pending. C1 fracture, likely transfer. Will need new collar, none here. Last updated by Sara Baeza PA at 08/13/22 15:50
--- NOTE | 2022-08-13 11:13 | DI.CT_ITS ---
Exam(s) CT HEAD CERVICAL SPINE WO EXAM: CT HEAD CERVICAL SPINE WO CLINICAL HISTORY: fall yesterday, struck head, over extension. TECHNIQUE: Imaging Protocol: Axial computed tomography images with coronal and sagittal reformatted images were created and reviewed COMPARISON: No exams were available for comparison FINDINGS: BRAIN: There are no skull fractures nor fluid in the visualized paranasal sinuses. There is no evidence of intracranial hemorrhage, mass effect, or shift of midline structures. There are no extra-axial fluid collections. The ventricles are not enlarged or shifted and there is no blo od within the ventricular system nor within the basal cisterns. Involutional change consistent with this patient's advanced age. CERVICAL SPINE: There are acute fractures in the upper cervical spine. There is nondisplaced oblique fracture in the mid aspect of the odontoid. In addition, there are multiple fractures in the C1 arch both left and right of midline. Approximate ly 2 millimeters displacement but no prominent compromise of the canal at this level. No additional fractures seen lower down in the cervical spine although there is multilevel chronic ty pe facet arthropathy and advanced multilevel disc space narrowing most prominent at C5-6 and C6-7 lev els. No facet malalignment evident. There is mild degenerative anterolisthesis of C7 upon T1. IMPRESSION: Fractures of C1 arch and nondisplaced mid odontoidfracture. No prominent canal compromise. Multilevel degenerative findings below this level but no additional fractures evident. No acute intracranial findings. Report called by myself to ER physician. RADIATION DOSE DELIVERED: 1,809.27mGy.cm Total DLP DATA REPOSITORY: All CT scans at this facility are submitted to the National Radiology Data Registry (NRDR) Dose Index Registry (DIR) with the [employer] (A[employer]). RADIATION OPTIMIZATION: All CT scans at this facility use at least one of these dose optimization te chniques: automated exposure control; mA and/or kV adjustment per patient size (includes targeted exa ms where dose is matched to clinical indication); or iterative reconstruction.
[2022-08-13] MEDS: Methocarbamol 750 MG TAB PO (11:29)
[2022-08-13] MEDS: Acetaminophen 325 MG TAB 650 MG PO (11:29)
[2022-08-13] MEDS: Lidocaine 5% Patch 1 PATCH TP (11:29)
[2022-08-13] MEDS: Lidocaine 5% Patch 1 PATCH (11:56)
--- NOTE | 2022-08-13 16:30 | DI.RAD_ITS ---
Exam(s) XR CERVICAL SP JULIO TRAUMA 2-3V EXAM: XR CERVICAL SP JULIO TRAUMA 2-3V CLINICAL HISTORY: c1 fracture. TECHNIQUE: 2D digital imaging was performed. COMPARISON: No exams were available for comparison FINDINGS: 3 views Multilevel chronic degenerative changes. Please note that the fractures seen in the odontoid and C1 arch on today's CT scan are more difficult to appreciate on these plain film images. On the open-mouth view there is some degenerative narrowing at the articulation between C1 and C2 and 3 millimeters lateral offset on the right side with only 1 millimeter lateral offset on the left maribel e at these articulations. There is chronic multilevel degenerative disc disease. Mild degenerative anterolisthesis C3 upon C4. Elimination of the disc space related to chronic degenerative changes at C 5-6 level. Also promine nt facet arthropathy. IMPRESSION: As above. Please note that the actual fracture lines in the C1 arch and in the odontoid are better a ble to be seen on the CT scan than on these plain films. DATA REPOSITORY: RADIATION DOSE DELIVERED:
[2022-08-13 16:32] LABS: Abs Immature Grans 0.02 10^3/uL (0.0-0.06); Absolute Basophil Count 0.06 10^3/uL (0.0-0.2); Absolute Eosinophil Count 0.11 10^3/uL (0.0-0.7); Absolute Lymphocyte Count 2.25 10^3/uL (1.2-3.4); Absolute Monocyte Count 0.95 10^3/uL (0.1-0.8); Absolute Neutrophil Count 5.02 10^3/uL (1.2-6.7); Basophils % 0.7; Eosinophils % 1.3; HCT 44.6 % (40.0-50.0); HGB 14.9 g/dL (13.5-17.5); Immature Grans % 0.2; Lymphocytes % 26.8; MCH 30.3 pg (27.0-33.0); MCHC 33.4 % (32.0-36.0); MCV 91 fL (80-95); Monocytes % 11.3; Neutrophils % 59.7; Platelet Count 316 10^3/uL (130-400); RBC 4.92 10^6/uL (4.36-5.78); RDW 12.9 % (11.8-14.1); RDW-SD 42.5 fL; WBC 8.41 10^3/uL (4.4-10.8)
[2022-08-13 16:47] LABS: ALT 31 U/L (16-63); AST 29 U/L (15-37); Albumin 3.7 g/dL (3.4-5.0); Alkaline Phosphatase 55 U/L (46-116); Anion Gap 8.8 mmol/L (3-11); BUN 17 mg/dL (7-18); Bilirubin, Total 0.6 mg/dL (0.2-1.0); CO2 27.2 mmol/L (21.0-32.0); CREATININE 0.9 mg/dL (0.70-1.30); Chloride 102 mmol/L (98-107); Estimated GFR 83.18 (mL/min/1.73m2); Glucose 84 mg/dL (74-106); Sodium 138 mmol/L (136-145); Total Protein 8.1 g/dL (6.4-8.2)
--- NOTE | 2022-08-13 17:19 | DI.VRAD_ITS ---
PROCEDURE INFORMATION: Exam: XR Cervical Spine Exam date and time: 08/13/2022 4:57 PM Age: 86 years old Clinical indication: Injury or trauma; Fall; Blunt trauma; Injury details: Known c1 fracture TECHNIQUE: Imaging protocol: Radiologic exam of the cervical spine. Views: 2 or 3 views. COMPARISON: CT HEAD CERVICAL SPINE WO 08/13/2022 11:47 AM FINDINGS: Bones/joints: The C1 and C2 fractures are not clearly identified. There is straightening of the normal lordosis. There is marked degenerative changes and disc space narrowing at C5-C6. C7 is poorly visualized. Soft tissues: Unremarkable. Other findings: The open-mouth view is limited. IMPRESSION: Straightening of the normal lordosis. Marked degenerative changes disc space narrowing at C5-C6. C7 is poorly visualized. The open-mouth view is limited. The C1-C2 fractures seen at on the CT scan of the cervical spine performed on 08/13/2022 are not clearly seen on the x-ray examination. Please see that report. Dictated and Authenticated by: Roni Rand MD. Ordering:HOLLIE Bhatia MD
== END 2022-08-13 17:52 | disposition home or self-care (01) ==
PROVIDERS: Physician Assistant; Emergency Provider Nurse Practitioner Family; PCP Family Medicine
DX: S12.000A Unspecified displaced fracture of first cervical vertebra, initial encounter for closed fracture (principal); S00.81XA Abrasion of other part of head, initial encounter; I48.91 Unspecified atrial fibrillation; Z79.01 Long term (current) use of anticoagulants; W18.40XA Slipping, tripping and stumbling without falling, unspecified, initial encounter; W22.8XXA Striking against or struck by other objects, initial encounter; Y93.89 Activity, other specified
CPT/HCPCS: 80053; 99284; 70450; 72040; 72125; 83735; 85025

== ENCOUNTER 2023-07-09 01:16 | Outpatient (CLI) | payer MEDICARE, OTHER, SELFPAY ==
[2023-07-09 11:43] LABS: MCH 31.3 pg (27.0-33.0); MCHC 34.1 % (32.0-36.0); MCV 92 fL (80-95); MPV 9.3 fL (8.0-11.0); Platelet Count 275 10^3/uL (130-400); RDW-SD 43.9 fL; WBC 7.99 10^3/uL (4.4-10.8)
[2023-07-09 12:25] LABS: ALT 29 U/L (16-63); AST 22 U/L (15-37); Albumin 3.6 g/dL (3.4-5.0); Alkaline Phosphatase 55 U/L (46-116); Anion Gap 9.7 mmol/L (3-11); BUN 19 mg/dL (7-18); Bilirubin, Total 0.4 mg/dL (0.2-1.0); CO2 27.3 mmol/L (21.0-32.0); CREATININE 1.2 mg/dL (0.70-1.30); Calcium 9.1 mg/dL (8.5-10.1); Chloride 104 mmol/L (98-107); Estimated GFR 58.53 (mL/min/1.73m2); Glucose 129 mg/dL (74-106); Sodium 141 mmol/L (136-145); Total Protein 7.6 g/dL (6.4-8.2); Vitamin B12 384 pg/mL (193-986)
== END 2023-07-09 01:17 | disposition home or self-care (01) ==
PROVIDERS: PCP Family Medicine; Visit Provider Family Medicine
DX: I48.91 Unspecified atrial fibrillation (principal); R03.0 Elevated blood-pressure reading, without diagnosis of hypertension; Z01.30 Encounter for examination of blood pressure without abnormal findings
CPT/HCPCS: 36415; 80053; 85027; 82607

== ENCOUNTER 2024-08-14 01:17 | Outpatient (CLI) | payer MEDICARE, OTHER, SELFPAY ==
[2024-08-14 12:34] LABS: HCT 42.6 % (40.0-50.0); HGB 14.3 g/dL (13.5-17.5); MCH 31.4 pg (27.0-33.0); MCHC 33.6 % (32.0-36.0); MCV 94 fL (80-95); MPV 9.4 fL (8.0-11.0); Platelet Count 224 10^3/uL (130-400); RBC 4.55 10^6/uL (4.36-5.78); RDW 13.2 % (11.8-14.1); RDW-SD 45.1 fL; WBC 5.82 10^3/uL (4.4-10.8)
[2024-08-14 12:53] LABS: ALT 44 U/L (16-63); AST 35 U/L (15-37); Albumin 3.8 g/dL (3.4-5.0); Alkaline Phosphatase 57 U/L (46-116); Anion Gap 8.5 mmol/L (3-11); BUN 17 mg/dL (7-18); Bilirubin, Total 0.82 mg/dL (0.2-1.0); CO2 28.5 mmol/L (21.0-32.0); CREATININE 1.1 mg/dL (0.70-1.30); Calcium 9.1 mg/dL (8.5-10.1); Chloride 106 mmol/L (98-107); Estimated GFR 64.57 (mL/min/1.73m2); Glucose 105 mg/dL (74-106); Sodium 143 mmol/L (136-145); Total Protein 7.4 g/dL (6.4-8.2)
== END 2024-08-14 01:18 | disposition home or self-care (01) ==
LOC: LBO 01:17
PROVIDERS: PCP Family Medicine; Visit Provider Family Medicine
DX: Z79.01 Long term (current) use of anticoagulants (principal); I10 Essential (primary) hypertension
CPT/HCPCS: 36415; 80053; 85027

== ENCOUNTER 2025-02-26 09:52 | Outpatient (CLI) | payer MEDICARE, OTHER, SELFPAY ==
[2025-02-26 11:50] LABS: HGB 13.9 g/dL (13.5-17.5); MCHC 33.9 % (32.0-36.0); MCV 92 fL (80-95); MPV 9.8 fL (8.0-11.0); Platelet Count 217 10^3/uL (130-400); RBC 4.48 10^6/uL (4.36-5.78); RDW 13.6 % (11.8-14.1); RDW-SD 46.1 fL; WBC 5.96 10^3/uL (4.4-10.8)
[2025-02-26 12:23] LABS: ALT 30 U/L (16-63); AST 25 U/L (15-37); Albumin 3.6 g/dL (3.4-5.0); Alkaline Phosphatase 55 U/L (46-116); Anion Gap 10.9 mmol/L (3-11); BUN 22 mg/dL (7-18); Bilirubin, Total 0.6 mg/dL (0.2-1.0); CO2 26.1 mmol/L (21.0-32.0); Calcium 8.8 mg/dL (8.5-10.1); Chloride 105 mmol/L (98-107); Estimated GFR 71.94 (mL/min/1.73m2); Glucose 151 mg/dL (74-106); Potassium 4.1 mmol/L (3.5-5.1); Sodium 142 mmol/L (136-145); Total Protein 7.2 g/dL (6.4-8.2)
[2025-02-26 18:38] LABS: PSA, Diagnostic 0.2 ng/mL (<=6.5)
== END 2025-02-26 09:53 | disposition home or self-care (01) ==
LOC: LBO 09:55
PROVIDERS: PCP Family Medicine; Visit Provider Family Medicine
DX: N40.0 Benign prostatic hyperplasia without lower urinary tract symptoms (principal); I10 Essential (primary) hypertension
CPT/HCPCS: 36415; 80053; 85027; 84153

== ENCOUNTER 2025-04-30 14:53 | Emergency (ER) | payer MEDICARE, OTHER, SELFPAY ==
[2025-04-30 15:00] VITALS: BP 176/115; PULSE 52; RESP 16; TEMP 36.4; O2SAT 95
[2025-04-30 15:06] VITALS: BP 176/115; PULSE 52; RESP 16; TEMP 36.4; O2SAT 95
--- NOTE | 2025-04-30 15:23 | W.ED.GENAD ---
Discharge Plan Disposition Patient Disposition: Home Condition: Good Discharge Details Clinical Impression: Hematuria, Left ureter dilated, Mucocele of appendix Primary Care Provider: Catrina Steve ED Provider: Jayson Dickerson [place] Meds and New Rx's Prescriptions: Continued metoprolol succinate 100 mg tablet extended release 24 hr 100 mg PO DAILY Qty: 10 3RF omeprazole magnesium [Prilosec OTC] 20 MG tablet,delayed release (DR/EC) 20 mg PO DAILY Eliquis 5 mg tablet 5 mg PO BID Qty: 28 3RF losartan 50 mg tablet 50 mg PO DAILY Qty: 90 3RF acetaminophen [Acetaminophen Extra Strength] 500 MG tablet 500 mg PO Q6H PRN PRNQty: 60 3RF Discharge Instructions Instructions: Blood in Urine (Hematuria), Adult ED Additional Instructions: You were seen in the ED for hematuria (blood in urine). Your examination, urinalysis and laboratory studies are reassuring. Your CT scan shows two findings that will need follow-up as we discussed. Please contact Dr. Steve/[facility] on Saturday for follow up/appointment. You should return to the ED if you develop any fever, increased bleeding with clots, inability to urinate, back or abdominal pain. Referrals: Catrina Steve MD, [place] [Primary Care Provider, Medicine] HPI General Mode of arrival: ambulatory. Date/Time Provider Initiated Documentation: 04/30/25 15:21. Limitations to Documentation: no limitations. Information obtained by: patient, RN notes reviewed and old records reviewed. HPI Narrative: Patient presents to ED with onset of hematuria couple of hours ago. Denies history of same. He is anticoagulated for atrial fibrillation. Has some slight dysuria involving the penis with urination but no abdominal pain, back pain, fever, vomiting. He is not having any difficulty urinating. Related Data Home Medications ?Medication ?Instructions ?Recorded ?Confirmed omeprazole magnesium 20 mg 20 mg PO DAILY 04/06/14 04/30/25 tablet,delayed release (Prilosec OTC) acetaminophen 500 mg tablet 500 mg PO Q6H PRN PRN #60 tabs 07/16/17 04/30/25 (Acetaminophen Extra Strength) apixaban 5 mg tablet (Eliquis) 5 mg PO BID #28 tabs 12/10/24 04/30/25 losartan 50 mg tablet 50 mg PO DAILY #90 tabs 01/26/25 04/30/25 metoprolol succinate 100 mg 100 mg PO DAILY #10 tabs 03/02/25 04/30/25 tablet,extended release 24 hr Previous Rx's ?Medication ?Instructions ?Recorded acetaminophen 500 mg tablet 500 mg PO Q6H PRN PRN #60 tabs 07/16/17 (Acetaminophen Extra Strength) apixaban 5 mg tablet (Eliquis) 5 mg PO BID #28 tabs 12/10/24 losartan 50 mg tablet 50 mg PO DAILY #90 tabs 01/26/25 metoprolol succinate 100 mg 100 mg PO DAILY #10 tabs 03/02/25 tablet,extended release 24 hr Allergies Allergy/AdvReac Type Severity Reaction Status Date / Time No Known Allergies Allergy Verified 04/30/25 15:05 General Stated Complaint: Urinary GINA: 3 Exam Narrative Exam Narrative: Const: WDWN elderly male in NAD. VS per triage. HEENT: NC/AT. Normal facial exam. Neck: Supple. Trachea midline. Lungs: Normal respiratory effort. GI: Soft/ND/NT. Back: No CVAT Neuro: A+O x 3. Normal speech, mentation, gait. Cranial nerves II - XII grossly intact. No gross motor or sensory deficit. Course Vital Signs Vital signs: Vital Signs Temperature 97.5 F L 04/30/25 15:00 Pulse 52 L 04/30/25 15:00 Respiratory Rate 16 04/30/25 15:00 Blood Pressure 176/115 H 04/30/25 15:00 Pulse Oximetry 95 04/30/25 15:00 Temperature 97.5 F L 04/30/25 15:06 Temperature Source Oral 04/30/25 15:06 Pulse 52 L 04/30/25 15:06 Respiratory Rate 16 04/30/25 15:06 Blood Pressure 176/115 H 04/30/25 15:06 Blood Pressure Position Sitting 04/30/25 15:06 Pulse Oximetry 95 04/30/25 15:06 Oxygen Delivery Method Room Air 04/30/25 15:06 Oxygen Flow Rate 0 04/30/25 15:06 Pain Level 0 04/30/25 15:06 Medical Decision Making Patient presents to ED with hematuria without fever, back pain, abdominal pain. Has mild discomfort in the penis when urinating since this started. He is anticoagulated for atrial fibrillation. He has never had this problem before. He does have a history of BPH. Review of his records shows no prior imaging of his abdomen or pelvis. Nursing reports that urine was more brown than bloody. Will place an IV and obtain labs including a CPK and liver function. Urinalysis sent. CT of the abdomen pelvis with IV contrast ordered. 17:40 - Patient's urine shows blood only. There are no white cells or bacteria appreciated. His white count is normal. Hemoglobin and platelets are normal. Kidney function is normal. His CT scan shows two findings that will need follow-up. He does have significant dilatation of the left renal collecting system but no stricture, mass, stones appreciated. However, this finding will need urology follow-up and likely cystoscopy. Second finding is a probable mucocele arising from the appendix. This will need to be further evaluated and likely require colonoscopy. I have discussed these findings with the patient. His primary care physician is Dr. Steve. He is instructed to contact [facility] after the holiday weekend to arrange for follow-up/appointment. Return precautions provided. Medical Records Medical records reviewed: Yes I reviewed the patient's medical records. Imaging Data Radiologic Study: Imaging: CT Scan Radiologist's impression: IMPRESSION: 1. Moderately severe dilatation of the left renal collecting system throughout its entire length. No structure in stones are seen. No obvious mass is seen. Urology consult is recommended. A bladder or distal ureteral mass or noncalcified stone cannot be excluded. 2. Tubular blind-ending structure arising from the cecum measuring 1.8 cm in diameter and 5.1 cm in length. No inflammatory changes are seen. There is no abscess. The findings are suspicious for a mucocele. This can be associated with an appendiceal neoplasm. 3. Cardiomegaly. 4. No evidence of nephrolithiasis. 5. Multiple urinary bladder diverticula. 6. High density material seen layering in the dependent portion of the urinary bladder which may represent very small stones. 7. Colonic diverticulosis without evidence of acute diverticulitis. Lab Data Lab results reviewed: Yes I reviewed the patient's lab results. 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) Hypertriglyceridemia (Chronic) Hyperlipidemia (Chronic 12/02/07) HX of low HDL's Hip pain (Chronic 02/09/13) Hemorrhoids (Chronic 12/02/07) Hearing loss (Chronic) Diverticulosis of colon without diverticulitis (Chronic 02/04/08) 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 Stomach cancer Sister No problems noted. Maternal Grandfather , age 70 Cancer Paternal Grandfather , age 46 Cancer of spinal column Paternal Grandmother , age 61 Cervical cancer Maternal Grandmother , age 91 No problems noted. Son No problems noted. Daughter No problems noted. Social History Smoking/Tobacco Use Status: Former Tobacco Use tobacco type: cigarettes Quit Date: 09/02/1963 Tobacco: How many years used: 12 Second Hand Exposure: Yes Smoking risk assessment performed?: Yes Alcohol Intake: current Alcohol Intake frequency: 0-2 drinks per day Alcohol type: wine and hard liquor Drug use: Never Substance use type: does not use Adopted: No Caregiver/Support person: No Foster care: No Household members: spouse Housing: house Number of Children: 2 number of grandchildren: 4 Communication Needs: Hard of Hearing and Corrective Lenses Education Level: master's degree Do you need help understanding health information?: Never current occupation: retired Pets and animals: Yes Pets and animals: dog(s) Sexually active: Yes Do you think of yourself as: straight/heterosexual Current gender identity: male What is your relationship status?: How often do you talk on the phone with friends or family?: decline to answer How often do you get together with friends or relatives?: decline to answer How often do you attend sikhism or tenriism services?: decline to answer Do you belong to any clubs or organized social groups?: no Panel score (0-1 are the most socially isolated patients): 1 What type of physical activity do you participate in: bicycling, weight lifting and other Details: gym Duration: 45-60 minutes/day Frequency: 3-4 times per week Ivy/Adventism: Non presybeterian Special ivy needs: No Agree to transfusion: Yes Seatbelt use: always Helmet use: Yes Helmet use: sometimes Drive intox or ride 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
--- NOTE | 2025-04-30 15:30 | DI.CT_ITS ---
Exam(s) CT ABDOMEN PELVIS W EXAM: CT ABDOMEN PELVIS W CLINICAL HISTORY: painless hematuria TECHNIQUE: Imaging Protocol: Axial computed tomography images with coronal and sagittal reformatted images were created and reviewed. CONTRAST MATERIAL: Intravenous: Omnipaque 350 Contrast volume:75 mL Oral: No COMPARISON: No exams were available for comparison FINDINGS: ABDOMEN: Lung Bases: Cardiomegaly. Liver: Normal density. No measurable mass. Portal, Superior Mesenteric, and Splenic Veins: Unremarkable. Gallbladder and Biliary Tract: No radiodense calculus or dilation. Pancreas: Normal density, no abnormal calcifications or inflammatory process. Spleen: Normal. Adrenals: No masses seen. Kidneys: Normal size, contour and axis. There is no nephrolithiasis. There is moderately severe dilatation of the left renal collecting system without radiodense stone or definite mass identified at this time. There are bilateral simple renal cysts. No follow-up is recommended. Abdominal Aorta: Abdominal portion non-dilated. Atherosclerotic calcification is present. Bowel: There is diverticulosis throughout the colon but no evidence of acute diverticulitis. There is no bowel wall thickening or obstruction. There is a blind-ending tubular structure arising from the cecum (series 4, image 26). It measures 1.8 cm in maximum diameter and 5.1 cm in length. Peritoneal Cavity: No ascites, collection or mesenteric inflammatory response. No free air. Lymph Nodes: Within normal limits. Bones: Within normal limits for the patient's age. There is grade 1 anterolisthesis of L4 on L5. Soft Tissues: Bilateral fat containing inguinal hernias are present. PELVIS: Bladder: There are several urinary bladder diverticula present. There is hyperdense layering material in the dependent portion of the urinary bladder which may represent very small bladder stones. Reproductive Organs: Unremarkable as visualized. Lymph Nodes: Within normal limits. Bones: Within normal limits for the patient's age. IMPRESSION: 1. Moderately severe dilatation of the left renal collecting system throughout its entire length. No structure in stones are seen. No obvious mass is seen. Urology consult is recommended. A bladder or distal ureteral mass or noncalcified stone cannot be excluded. 2. Tubular blind-ending structure arising from the cecum measuring 1.8 cm in diameter and 5.1 cm in length. No inflammatory changes are seen. There is no abscess. The findings are suspicious for a mucocele. This can be associated with an appendiceal neoplasm. 3. Cardiomegaly. 4. No evidence of nephrolithiasis. 5. Multiple urinary bladder diverticula. 6. High density material seen layering in the dependent portion of the urinary bladder which may represent very small stones. 7. Colonic diverticulosis without evidence of acute diverticulitis. Unexpected findings RADIATION DOSE DELIVERED: 581.78mGy.cm Total DLP DATA REPOSITORY: All CT scans at this facility are submitted to the National Radiology Data Registry (NRDR) Dose Index Registry (DIR) with the [employer] (ACR). RADIATION OPTIMIZATION: All CT scans at this facility use at least one of these dose optimization techniques: automated exposure control; mA and/or kV adjustment per patient size (includes targeted exams where dose is matched to clinical indication); or iterative reconstruction.
[2025-04-30 15:33] LABS: Glucose Negative (Negative)
[2025-04-30 15:37] LABS: RBC >50 HPF (0-2)
[2025-04-30 15:38] LABS: C & S Indicated? No
[2025-04-30 15:58] LABS: Abs Immature Grans 0.01 10^3/uL (0.0-0.06); HCT 46.6 % (40.0-50.0); HGB 15.7 g/dL (13.5-17.5); Immature Grans % 0.1 %; MCH 31.2 pg (27.0-33.0); MCHC 33.7 % (32.0-36.0); MCV 93 fL (80-95); MPV 9.7 fL (8.0-11.0); Platelet Count 278 10^3/uL (130-400); RBC 5.04 10^6/uL (4.36-5.78); RDW 13.3 % (11.8-14.1); RDW-SD 45.1 fL; WBC 6.77 10^3/uL (4.4-10.8)
[2025-04-30 15:59] VITALS: BP 140/92; PULSE 61; RESP 16; O2SAT 95
[2025-04-30 16:11] LABS: ALT 38 U/L (16-63); AST 36 U/L (15-37); Albumin 4.2 g/dL (3.4-5.0); Alkaline Phosphatase 51 U/L (46-116); Anion Gap 7.1 mmol/L (3-11); BUN 19 mg/dL (7-18); Bilirubin, Total 0.8 mg/dL (0.2-1.0); CO2 29.9 mmol/L (21.0-32.0); Calcium 9.5 mg/dL (8.5-10.1); Chloride 104 mmol/L (98-107); Creatine Kinase 161 U/L (39-308); Estimated GFR 71.94 (mL/min/1.73m2); Glucose 90 mg/dL (74-106); Potassium 4.2 mmol/L (3.5-5.1); Sodium 141 mmol/L (136-145); Total Protein 8.3 g/dL (6.4-8.2)
[2025-04-30] MEDS: Normal Saline - Diluent 50 ML VIAL IJ (16:27)
[2025-04-30] MEDS: Omnipaque 350 MG/ML 100 ML BTL IJ (16:28)
== END 2025-04-30 17:40 | disposition home or self-care (01) ==
PROVIDERS: Emergency Provider Emergency Medicine; PCP Family Medicine
DX: N28.82 Megaloureter (principal); R31.0 Gross hematuria; K38.8 Other specified diseases of appendix; I10 Essential (primary) hypertension; Z79.01 Long term (current) use of anticoagulants
CPT/HCPCS: 99284 ×2; 80053; 82550; 74177; 81003; 81015; 85025; J3490

== ENCOUNTER → 2025-05-05 09:28 | Outpatient (BNVA) | payer MEDICARE, OTHER, SELFPAY | PROVIDERS: PCP Family Medicine; Referring Provider Family Medicine; Visit Provider Surgery | DX: K38.8 Other specified diseases of appendix (principal); I48.91 Unspecified atrial fibrillation; Z79.01 Long term (current) use of anticoagulants | CPT/HCPCS: 99214 ==

== ENCOUNTER 2025-05-06 20:45 | Outpatient (REF) | payer MEDICARE, OTHER, SELFPAY ==
[2025-05-06 21:49] LABS: Glucose Negative (Negative)
[2025-05-06 21:55] LABS: RBC >50 HPF (0-2); WBC Negative HPF (0-5)
[2025-05-06 21:56] LABS: C & S Indicated? No
== END 2025-05-06 20:46 | disposition home or self-care (01) ==
LOC: LBN 20:45
PROVIDERS: PCP Family Medicine; Visit Provider Family Medicine
DX: R31.9 Hematuria, unspecified (principal)
CPT/HCPCS: 81003; 81015

== ENCOUNTER → 2025-05-11 12:36 | Outpatient (BNVA) | payer MEDICARE, OTHER, SELFPAY | PROVIDERS: PCP Family Medicine; Referring Provider Family Medicine; Visit Provider Nurse Practitioner Gerontology | DX: N28.82 Megaloureter (principal); R31.9 Hematuria, unspecified; N40.0 Benign prostatic hyperplasia without lower urinary tract symptoms; N39.490 Overflow incontinence | CPT/HCPCS: 99215; 51798 ==

== ENCOUNTER 2025-05-20 07:22 | Day surgery (SDC) | payer MEDICARE, OTHER, SELFPAY ==
[2025-05-20 07:32] VITALS: BP 161/106; PULSE 77; RESP 16; TEMP 36.2; O2SAT 97
[2025-05-20 07:52] VITALS: BP 154/94
[2025-05-20] MEDS: Lactated Ringers 1,000 ML 80 ML IV (07:55)
--- NOTE | 2025-05-20 08:08 | W.PM.HP.N ---
Date of service: 05/20/25 Time of Service: 08:08 Assessment and Plan Assessment and plan (1) Hematuria: Status: Acute (2) Left ureter dilated: Status: Acute Assessment and plan: We will complete his hematuria workup with a cystoscopy and bilateral retrograde pyelogram History of Present Illness History of Present Illness Chief Complaint: Gross hematuria Narrative: This is an 89-year-old gentleman who presented to the emergency department about a month ago with gross hematuria. He was evaluated with a noncontrast CT of the abdomen and pelvis. He had a distended bladder and left hydronephrosis and hydroureter. His urine culture showed no infection. He is chronically anticoagulated for his atrial fibrillation. His hematuria has since resolved. He presents for cystoscopy and retrograde pyelogram to complete his hematuria workup. Review of Systems Narrative: No fevers or chills Decreased hearing acuity. No vision change or dysphasia No diabetes or thyroid No shortness of breath, cough or hemoptysis Atrial fibrillation. No chest pain or palpitations Due for appendectomy. Hx GERD. No hepatitis, ulcers, jaundice No seizures, strokes or peripheral neuropathy Anticoagulated - on Apixaban. 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) Hypertriglyceridemia (Chronic) Hyperlipidemia (Chronic 12/02/07) HX of low HDL's Hip pain (Chronic 02/09/13) Hemorrhoids (Chronic 12/02/07) Hearing loss (Chronic) Diverticulosis of colon without diverticulitis (Chronic 02/04/08) 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 Stomach cancer Sister No problems noted. Maternal Grandfather , age 70 Cancer Paternal Grandfather , age 46 Cancer of spinal column Paternal Grandmother , age 61 Cervical cancer Maternal Grandmother , age 91 No problems noted. Son No problems noted. Daughter No problems noted. Social History Smoking/Tobacco Use Status: Former Tobacco Use tobacco type: cigarettes Quit Date: 09/02/1963 Tobacco: How many years used: 12 Second Hand Exposure: Yes Smoking risk assessment performed?: Yes Alcohol Intake: current Alcohol Intake frequency: 0-2 drinks per day Alcohol type: wine and hard liquor Drug use: Never Substance use type: does not use Adopted: No Caregiver/Support person: No Foster care: No Household members: spouse Housing: house Number of Children: 2 number of grandchildren: 4 Communication Needs: Hard of Hearing and Corrective Lenses Education Level: master's degree Do you need help understanding health information?: Never current occupation: retired Pets and animals: Yes Pets and animals: dog(s) Sexually active: Yes Do you think of yourself as: straight/heterosexual Current gender identity: male What is your relationship status?: How often do you talk on the phone with friends or family?: decline to answer How often do you get together with friends or relatives?: decline to answer How often do you attend caodaism or anabaptism services?: decline to answer Do you belong to any clubs or organized social groups?: no Panel score (0-1 are the most socially isolated patients): 1 What type of physical activity do you participate in: bicycling, weight lifting and other Details: gym Duration: 45-60 minutes/day Frequency: 3-4 times per week Ivy/Yarsani: Non anglican Special ivy needs: No Agree to transfusion: Yes Seatbelt use: always Helmet use: Yes Helmet use: sometimes Drive intox or ride w/intox 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 Working smoke detector in home: Yes Carbon monox detector in home: No Firearms in home: Yes Firearms unloaded and locked: Yes Do you feel safe at home: Yes Do you feel safe in your relationship?: Yes Victim of physical abuse: No Victim of emotional abuse: No Victim of sexual abuse: No Meds Allergies and Home Medications Allergies Allergy/AdvReac Type Severity Reaction Status Date / Time No Known Allergies Allergy Verified 05/20/25 07:46 Home Medications ?Medication ?Instructions ?Recorded ?Confirmed ?Type omeprazole magnesium 20 mg 20 mg PO DAILY 04/06/14 05/20/25 History tablet,delayed release (Prilosec OTC) acetaminophen 500 mg tablet 500 mg PO Q6H PRN PRN #60 tabs 07/16/17 05/20/25 Rx (Acetaminophen Extra Strength) apixaban 2.5 mg tablet 2.5 mg PO BID #180 tabs 05/06/25 05/17/25 Rx metoprolol succinate 100 mg 100 mg PO DAILY #90 tabs 05/17/25 05/20/25 Rx tablet,extended release 24 hr losartan 50 mg tablet 50 mg PO HS 05/20/25 05/20/25 History tamsulosin 0.4 mg capsule (Flomax) 0.4 mg PO HS 05/20/25 05/20/25 History Exam Const General: cooperative Neck Neck: supple Resp Effort & Inspection: normal respiratory effort Auscultation: clear to auscultation bilaterally Cardio Rhythm: abnormal rhythm irregularly irregular GI Palpation: soft and no masses Neuro General: patient alert, patient awake and patient oriented x3 Results Last Vital Signs Temp 36.2 C L 05/20/25 07:32 Pulse 77 05/20/25 07:32 Resp 16 05/20/25 07:32 BP 154/94 H 05/20/25 07:52 Pulse Ox 97 05/20/25 07:32
--- NOTE | 2025-05-20 08:38 | PDOC.ANES ---
Date of service: 05/20/25 Time of Service: 08:38 Anesthesia Note Report Anesthesia Note: Met patient for preoperative exam/discussion. During physical exam, noted to have a new cardiac murmur. Patient reports increased SOB walking up stairs that has worsened in the last year. Reviewed recent PCP visit that did not mention the murmur. Discussed with patient and Dr. Cunningham the need to postpone the procedure today for a cardiac workup to include an echocardiogram. The patient is scheduled for an upcoming appendectomy 06/21/25. Dr. Cunningham will have the patient resume his anticoagulation for Afib.
== END 2025-05-20 07:23 ==
LOC: SUR 07:22
PROVIDERS: PCP Family Medicine; Visit Provider Urology
DX: Z53.9 Procedure and treatment not carried out, unspecified reason (principal)

== ENCOUNTER 2025-05-28 03:48 | Outpatient (CLI) | payer MEDICARE, OTHER, SELFPAY ==
--- NOTE | 2025-05-28 05:30 | DI.US_ITS ---
APPROVED REPORT EXAM: Comprehensive 2D, Doppler, and color-flow Echocardiogram Patient Location: Out-Patient Spray Crew: Lillian Harper RDCS (AE) Indications: New cardiac murmur Other Information Study Quality: Adequate Conclusion Normal left ventricular wall thickness and chamber size. EF is 59%. Wall motion is normal Normal right ventricular size and function Both atria are severely enlarged Aortic valve is calcified and trileaflet. There is moderate aortic stenosis. Peak gradient is 41, mean 26 mmHg. Calculated aortic valve area is 1.2 cm??. There is trace aortic regurgitation Normal mitral valve with moderate central regurgitation Trace to mild tricuspid regurgitation. Estimated right ventricular systolic pressure is 52 mmHg Very mildly dilated ascending aorta Patient is in atrial fibrillation with a controlled rate and [id number] variation during the study Wall motion Left Ventricle The left ventricle is normal size. The left ventricular systolic function is normal. The left ventricular ejection fraction is within the normal range. There is normal left ventricular wall thickness. There is normal LV segmental wall motion. There is no ventricular septal defect visualized. LVEF is 59%. Right Ventricle The right ventricle is normal size. The right ventricular systolic function is normal. Atria Left atrium is severely dilated. Right atrium is severely dilated. The interatrial septum is intact with no evidence for an atrial septal defect. Aortic Valve Aortic valve is calcified. Aortic valve is trileaflet. Moderate aortic stenosis. Highest mean aortic valve gradient is25.99_mmHg Peak aortic valve gradient is 41.42mmHg.. Calculated CAMPBELL by the continuity equation is 1.2_cm2. Trace aortic regurgitation. Mitral Valve The mitral valve is normal in structure. No evidence of mitral valve stenosis. Moderate mitral regurgitation. Tricuspid Valve The tricuspid valve is normal in structure. There is no tricuspid valve stenosis. Mild to moderate tricuspid regurgitation. The RVSP is 52.9 mmHg. Pulmonic Valve The pulmonary valve is normal in structure. There is no pulmonic valvular stenosis. There is no pulmonic valvular regurgitation. Great Vessels The aortic root is normal in size. The ascending aorta is mildly dilated. Aortic arch is not well visualized. IVC is normal in size and collapses >50% with inspiration. Pericardium There is no pericardial effusion. 2D Dimensions IVSD d PLAX 1.00 cm M: 0.6-1.2 Ao Root d 2.88 cm M: 3.1 - 3.7 LVPW d PLAX 1.02 cm M: 0.6 - 1.2 Ao Asc Diam d 3.54 cm M: 2.6 - 3.4 LVID d PLAX 5.20 cm M: 4.2 - 5.8 LVDs 3.60 cm M: 2.5 - 4.0 LV EF Teichholz 59.2 % FS 31.60 % LV EDV (Teich) 128.9 mL LV ESV (Teich) 52.6 mL M-Mode TAPSE 1.42 cm (M/F) >1.7 Auto EF LV EDV A4C 126.7 mL LV EDV A2C 135.1 mL LV EDV BP 132.9 mL LV ESV A4C 52.9 mL LV ESV A2C 57.7 mL LV ESV BP 54.7 mL LVEF(%) A4C 58.2 % LVEF(%) A2C 57.3 % LVEF(%) BP 58.8 % LV SV A4C 73.8 ml LV SV A2C 77.4 ml LV SV BP 78.2 ml LV CO A4C 5.8 L/min LV CO A2C 6.8 L/min LV CO BP 6.3 L/min HR A4C 78.57 BPM HR A2C 87.38 BPM LV EDV Index (BP) RV Strain Global Peak Long. Strain A4C 14.66 Global Peak Long. Strain A4C FW 18.92 LA Volume LA Length A4C 6.8 cm LA Length A2C 6.8 cm LA Area A4C s 35.53 cm2 LA Area A2C s 33.51 cm2 LA Vol A4C A-L 156.87 mL LA Vol A2C A-L 139.82 mL LA Vol Biplane A-L 148.2 mL LA Vol/BSA A4C A-L LA Vol/BSA A2C A-L LA Vol/BSA BP A-L 74.1 mL/m2 LA Vol A4C MOD 148.5 mL LA Vol A2C MOD 130.6 mL LA Vol BP MOD 138.7 mL RA Volume RA Area A4C 33.1 cm2 RA ESV A4C (A-L) 119.6mL RA Vol/BSA A4C A-L RA Length A4C 7.8 cm RA ESV A4C (MOD) 114.0mL LV Diastology MV E' medial 0.062 (>0.07 m/s) MV E Vmax 1.09 (0.4-1.3 m/s) MV E/E' MED 17.63 (<14) MV E' lateral 0.134 (>0.1 m/s) MV E/E' LAT 8.12 (<14) MV E' Average 0.098 m/s MV E/E'(average) 11.12 Aortic Valve AoV Vmax 3.22 m/s LVOT Vmax 1.15 m/s AoV Peak Grad 41.4 mmHg LVOT Peak Grad 5.3 mmHg AoV Area (Vmax) 1.22 cm2 LVOT VTI 0.276 m AoV VTI 0.706 m LVOT Mean Grad 3.6 mmHg AoV Mean Kentrell. 2.44 m/s LVOT SV 94.25 mL AoV Mean Grad 26.0 mmHg LVOT Diam s 2.05 cm AoV Area (VTI) 1.34 cm2 AV Regurg Peak Gr. 41.42 mmHg Velocity Ratio 0.36 Mitral Valve MV DT 156 (160-240 msec) MR Vmax 5.62 m/s MV Vmax TIPS 1.03 m/s MR VTI 1.826 m MV Mean Grad 0.9 (<2mmHg) MR Peak Grad 126.2 mmHg MV VTI 0.254 m MR Mean Grad 88.0 mmHg Pulmonary Valve PV Vmax 0.79 (0.5-1.5 m/s) RVOT Vmax 0.55 m/s PV Peak Grad 2.5 mmHg RVOT Peak Gr. 1.2 mmHg PV Mean Kentrell 0.57 m/s RVOT VTI 0.122 m PV Mean Grad 1.4 mmHg RVOT Mean Gr. 0.6 mmHg Tricuspid Valve RA Pressure 3.00 mmHg TR Vmax 3.53 m/s TV S' 0.11 m/s TR Peak Grad 49.9 mmHg RVSP (TR) 52.9 mmHg
== END 2025-05-28 04:08 ==
LOC: DI 03:49
PROVIDERS: PCP Family Medicine; Visit Provider Internal Medicine Cardiovascular Disease
DX: R01.1 Cardiac murmur, unspecified (principal); I35.0 Nonrheumatic aortic (valve) stenosis
CPT/HCPCS: 93306

== ENCOUNTER 2025-06-17 10:11 | Emergency (ER) | payer MEDICARE, OTHER, SELFPAY ==
[2025-06-17] VITALS (62 sets, daily range): BP systolic 177–188; BP diastolic 102–116; PULSE 60–91; RESP 12–26; O2SAT 94–98
--- NOTE | 2025-06-17 10:13 | RT.EKG_ITS ---
APPROVED REPORT Exam: Resting ECG Reason for Exam: loss of consciousness Patient Location: E HR:70 bpm ECG Measurements Heart Rate 70 AXIS VT [id number] P [id number] QRSd 108 QRS 33 QT 413 T -15 QTc 445 Conclusion Atrial fibrillation...? atrial activity Borderline repol abnormality, diffuse leads...ST dep, T flat/neg, ant/lat/inf No Occlusion PR
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
[2025-06-17 10:48] LABS: Abs Immature Grans 0.02 10^3/uL (0.0-0.06); HCT 43.6 % (40.0-50.0); HGB 14.5 g/dL (13.5-17.5); Immature Grans % 0.3 %; MCH 29.8 pg (27.0-33.0); MCHC 33.3 % (32.0-36.0); MCV 90 fL (80-95); MPV 9.4 fL (8.0-11.0); Platelet Count 247 10^3/uL (130-400); RBC 4.86 10^6/uL (4.36-5.78); RDW 13.2 % (11.8-14.1); RDW-SD 43.4 fL; WBC 7.18 10^3/uL (4.4-10.8)
[2025-06-17 10:58] LABS: INR 1.2 (0.9-1.1); Prothrombin Time 12.1 sec (9.1-11.1)
[2025-06-17] MEDS: Omnipaque 350 MG/ML 100 ML BTL IJ (11:11)
[2025-06-17] MEDS: Normal Saline - Diluent 50 ML VIAL IJ (11:11)
[2025-06-17] MEDS: Normal Saline Flush 10 ML SYR IVP (11:11)
[2025-06-17 11:12] LABS: ALT 27 U/L (16-63); AST 29 U/L (15-37); Albumin 4.1 g/dL (3.4-5.0); Alkaline Phosphatase 59 U/L (46-116); Anion Gap 9.7 mmol/L (3-11); BUN 12 mg/dL (7-18); Bilirubin, Total 1.4 mg/dL (0.2-1.0); CO2 27.3 mmol/L (21.0-32.0); Calcium 9.1 mg/dL (8.5-10.1); Chloride 102 mmol/L (98-107); Estimated GFR 71.94 (mL/min/1.73m2); Glucose 117 mg/dL (74-106); Lipase 39 U/L (<78); Magnesium 1.9 mg/dL (1.8-2.4); NT-proBNP 2049 pg/mL (<300); Potassium 4.1 mmol/L (3.5-5.1); Sodium 139 mmol/L (136-145); Total Protein 7.9 g/dL (6.4-8.2); Troponin I 26 ng/L (<or=76)
[2025-06-17 12:27] LABS: Troponin I 26 ng/L (<or=76)
[2025-06-17 12:44] LABS: Glucose Negative (Negative)
[2025-06-17 12:45] LABS: C & S Indicated? No; WBC 0-2 HPF (0-5)
[2025-06-17] MEDS: Metoprolol CR 100 MG TABCR PO (12:45)
[2025-06-17 13:52] LABS: TSH (W/Ref FT4) 1.40 uIU/mL (0.36-3.74); Vitamin B12 300 pg/mL (193-986)
== END 2025-06-17 13:13 | disposition home or self-care (01) ==
PROVIDERS: Emergency Provider Registered Nurse Emergency; PCP Family Medicine
DX: R55 Syncope and collapse (principal); I48.91 Unspecified atrial fibrillation; V89.2XXA Person injured in unspecified motor-vehicle accident, traffic, initial encounter
CPT/HCPCS: 99285; 99284; 36415; 74177; 80053; 83690; 93005; 70450; 71260; 72125; 81003; 81015; 82607; 83735; 83880; 84443; 84484; 85025; 85610; 93010; J3490

== ENCOUNTER 2025-06-21 13:08 | Outpatient (CLI) | payer MEDICARE, OTHER, SELFPAY | END 2025-06-21 13:09 | disposition home or self-care (01) | PROVIDERS: PCP Family Medicine; Visit Provider Family Medicine | DX: R55 Syncope and collapse (principal) | CPT/HCPCS: 93246 ==

== ENCOUNTER 2025-06-23 01:23 | Outpatient (CLI) | payer MEDICARE, OTHER, SELFPAY ==
--- NOTE | 2025-06-23 07:00 | DI.RAD_ITS ---
Exam(s) XR LUMBAR SPINE COMPLETE EXAM: XR LUMBAR SPINE COMPLETE CLINICAL HISTORY: right hip pain, Low back pain,m54.50. TECHNIQUE: 2D digital imaging was performed. Five views. COMPARISON: No exams were available for comparison FINDINGS: BONES: No fracture or destructive lesion. Vertebral body heights are maintained. Are facet degenerative changes, greatest at L4-5 pleural DISKS: There is mild narrowing of the L1-2 disc space. There is severe narrowing of the L4-5 and L5-S1 disc spaces. There prominent osteophytes at L5- S1. ALIGNMENT: Mild degenerative dextroscoliosis. Mild degenerative spondylolisthesis at L4-5. SOFT TISSUE: The aorta is calcified but normal in diameter. 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 DATA REPOSITORY: RADIATION DOSE DELIVERED:
--- NOTE | 2025-06-23 07:00 | DI.RAD_ITS ---
Exam(s) XR HIP RT COMPLETE AP PELVIS EXAM: XR HIP RT COMPLETE AP PELVIS CLINICAL HISTORY: right hip pain,m25.551. TECHNIQUE: 2D digital imaging was performed. Three views. COMPARISON: CR RIGHT HIP COMPLETE from 02/18/2013 FINDINGS: BONES: No acute fracture is present. No bony destructive lesion is seen. There are enthesophytes at the iliac wings. And greater trochanters. JOINTS: No dislocation present. there is mild bilateral hip joint space narrowing. There is mild bilateral acetabular spurring SI joints and pubic symphysis show mild mild degenerative changes. SOFT TISSUE: Normal. IMPRESSION: Mild degenerative changes of both hips. DATA REPOSITORY: RADIATION DOSE DELIVERED:
== END 2025-06-23 01:43 ==
LOC: DI 01:23
PROVIDERS: PCP Family Medicine; Visit Provider Family Medicine
DX: M16.0 Bilateral primary osteoarthritis of hip (principal); M51.362 Other intervertebral disc degeneration, lumbar region with discogenic back pain and lower extremity pain
CPT/HCPCS: 72110; 73502

== ENCOUNTER 2025-07-13 07:24 | Outpatient (CLI) | payer MEDICARE, OTHER, SELFPAY ==
--- NOTE | 2025-07-13 12:54 | W.CARDEVENT ---
Date of service: 07/13/25 Time of Service: 12:54 Cardiac Event Recorder Referring Provider:: Catrina Steve Indications:: Syncope Cardiac Event Note: This is a cardiac event monitor. Patient was monitored for 10 days and 11 hours Rhythm throughout was atrial fibrillation. Average heart rate was 70. Minimum was 31, maximum 147 There are occasional ventricular ectopic beats a total of 6 brief runs of nonsustained ventricular tachycardia were recorded. Longest was 6 beats in duration There was no high-grade AV block, no pauses greater than 3 seconds No symptoms were reported
== END 2025-07-13 07:25 | disposition home or self-care (01) ==
LOC: CARDOPNVT 07:24
PROVIDERS: PCP Family Medicine; Visit Provider Internal Medicine Cardiovascular Disease
DX: R55 Syncope and collapse (principal); I49.3 Ventricular premature depolarization
CPT/HCPCS: 93248

== ENCOUNTER 2025-07-22 08:13 | Outpatient (CLI) | payer MEDICARE, OTHER, SELFPAY ==
--- NOTE | 2025-07-22 09:04 | CER_ITS ---
Date of service: 07/22/25 Time of Service: 09:04 Cardiac Event Recorder Referring Provider:: Catrina Steve Indications:: Syncope Cardiac Event Note: This is a cardiac event monitor. Patient was monitored for 10 days and 11 hours Rhythm throughout was atrial fibrillation. Average heart rate was 70. Minimum was 31, maximum 147. Overall heart rates/ventricular response was well- controlled throughout There were occasional ventricular ectopic beats. There were several brief runs of nonsustained ventricular tachycardia, 3-6 beats in duration. All were asymptomatic There were no pauses, no high-grade AV block No symptoms were reported
== END 2025-07-22 08:14 | disposition home or self-care (01) ==
LOC: CARDOPNVT 08:13
PROVIDERS: PCP Family Medicine; Visit Provider Internal Medicine Cardiovascular Disease
DX: R55 Syncope and collapse (principal); I47.20 Ventricular tachycardia, unspecified
CPT/HCPCS: 93248

== ENCOUNTER 2025-08-13 09:11 | Outpatient (CLI) | payer MEDICARE, OTHER, SELFPAY ==
[2025-08-13 14:44] LABS: ESR 18 mm/hr (0-20)
[2025-08-13 15:09] LABS: C-Reactive Protein < 0.50 mg/dL (<=0.50)
[2025-08-14] LABS: CEA 1.6 ng/mL (See Note)
[2025-08-14 04:46] LABS: CA 19-9 25 U/mL (<35)
== END 2025-08-13 09:12 | disposition home or self-care (01) ==
PROVIDERS: PCP Family Medicine; Visit Provider Family Medicine
DX: R55 Syncope and collapse (principal); K38.8 Other specified diseases of appendix
CPT/HCPCS: 36415; 85652; 82378; 86140; 86301

== ENCOUNTER 2025-08-24 07:53 | Outpatient (CLI) | payer MEDICARE, OTHER, SELFPAY ==
--- NOTE | 2025-08-24 07:45 | RT.EKG_ITS ---
APPROVED REPORT Exam: Resting ECG Reason for Exam: cardiac evaluation Patient Location: O HR:72 bpm ECG Measurements Heart Rate 72 AXIS MO [id number] P [id number] QRSd 106 QRS 15 QT 427 T -20 QTc 468 Conclusion Atrial fibrillation...? atrial activity Ventricular premature complex...V complex w/ short R-R interval
== END 2025-08-24 07:54 | disposition home or self-care (01) ==
LOC: DI.CARD 07:54
PROVIDERS: PCP Family Medicine; Visit Provider Internal Medicine Cardiovascular Disease
DX: I27.20 Pulmonary hypertension, unspecified (principal); I35.0 Nonrheumatic aortic (valve) stenosis; I48.91 Unspecified atrial fibrillation; I47.29 Other ventricular tachycardia; I49.3 Ventricular premature depolarization
CPT/HCPCS: 93010

== ENCOUNTER → 2025-08-24 13:16 | Outpatient (BNVA) | payer MEDICARE, OTHER, SELFPAY | PROVIDERS: PCP Family Medicine; Referring Provider Family Medicine; Visit Provider Internal Medicine Cardiovascular Disease | DX: I48.21 Permanent atrial fibrillation (principal); I35.0 Nonrheumatic aortic (valve) stenosis; Z01.810 Encounter for preprocedural cardiovascular examination; I27.20 Pulmonary hypertension, unspecified; I47.29 Other ventricular tachycardia | CPT/HCPCS: 99214; 93005 ==